=== PATIENT | male | born 1945 | race Caucasian/White ===

== ENCOUNTER → 2020-09-15 01:52 | Outpatient (CLI) | payer MEDICARE, SELFPAY ==
[2020-09-15 19:04] LABS: SARS-CoV-2 RNA PCR Negative
== END ==
PROVIDERS: PCP Internal Medicine; Visit Provider Urology
DX: Z01.812 Encounter for preprocedural laboratory examination (principal); Z20.822 Contact with and (suspected) exposure to COVID-19
CPT/HCPCS: C9803; U0003; U0005

== ENCOUNTER 2020-09-15 08:12 | Outpatient (CLI) | payer MEDICARE, SELFPAY ==
--- NOTE | 2020-09-15 09:00 | ECG_ITS ---
Measurements Intervals [place] Rate: 82 P: 52 MA: 192 QRS: -19 QRSD: 122 T: 19 QT: 364 QTc: 425 Interpretive Statements SINUS RHYTHM POOR R WAVE PROGRESSION, ANTERIOR LEADS INFERIOR INFARCT, AGE INDETERMINATE ABNORMAL ECG Electronically Signed On 09-15-2020 12:14:35 CDT by Jeff Self D.O.
== END 2020-09-15 08:13 | disposition home or self-care (01) ==
LOC: ANHSURGERY 08:16
PROVIDERS: PCP Internal Medicine; Visit Provider Urology
DX: Z01.810 Encounter for preprocedural cardiovascular examination (principal); I51.9 Heart disease, unspecified; I25.2 Old myocardial infarction
CPT/HCPCS: 93005; C9803; U0003; U0005

== ENCOUNTER 2020-09-18 03:14 | Day surgery (SDC) | payer MEDICARE, SELFPAY ==
[2020-09-08 15:46] VITALS: BMI 35.8
--- NOTE | 2020-09-11 07:19 | P.HP_ITS ---
History of Present Illness History of Present Illness Consent: Risks, benefits, and alternatives have been discussed and questions answered. Patient agrees to proceed with procedure. Chief complaint: bilateral hydroceles Narrative: Sha Crowe is a 74 year old male longstanding history scrotal swelling consistent with hydrocele. He also has a moderately elevated PSA. I have had several discussions with him about indications for hydrocelectomy and for prostate biopsy. After consideration he has opted for a bilateral hydrocelectomy but refuses a prostate biopsy. He is aware the risk of this procedure including, but not limited to, recurrent hydrocele formation, persistent scrotal swelling, scrotal hematoma. Review of Systems Cardiovascular: Cardiovascular: Denies chest pain, Denies lightheadedness, Denies palpitations and Denies dyspnea Respiratory: Respiratory: Denies dyspnea Gastrointestinal: Gastrointestinal: Denies diarrhea, Denies nausea and Denies vomiting Genitourinary: Genitourinary: Denies hematuria and Denies dysuria Endocrine: Endocrine: Denies palpitations PMFSH Social History Social History Smoking status: Never smoker Alcohol intake: former Drinks per week: 40 Spiritual care concerns: No Meds Home Medications and Allergies Home Medications Medication Instructions Recorded Confirmed Type No Home Medications 09/08/20 09/08/20 History Allergies Allergy/AdvReac Type Severity Reaction Status Date / Time No Known Allergies Allergy Verified 09/08/20 15:05 Exam Const: General: no acute distress Resp: Effort & Inspection: normal respiratory effort GI: Inspection: non-distended GI Palp: No abdominal tenderness and No Guarding due to palpation present (GI) Auscultation: normal bowel sounds Assessment and Plan Assessment and plan (1) Bilateral hydrocele: Code(s): N43.3 - Hydrocele, unspecified Status: Acute Assessment and Plan: * Bilateral hydrocelectomy (2) Elevated PSA: Code(s): R97.20 - Elevated prostate specific antigen [PSA] Status: Acute Assessment and Plan: * Patient opts against prostate ultrasound and biopsy
--- NOTE | 2020-09-17 13:55 | WPDANESEPPF ---
Anes - Initial Pre Proc Eval Procedure: Operation Date: 09/18/20 12:45 Proposed Procedures p Bilateral Hydrocelectomy - Pola Daigle MD Date/Time: 09/17/20 13:55 Surgeon: Pola Daigle MD Pre Op Diagnosis: bilateral hydroceles Patient Data Age: 74 Gender: M Height: 1.83 m Weight: 119.75 kg Allergies Allergy/AdvReac Type Severity Reaction Status Date / Time No Known Allergies Allergy Verified 09/08/20 15:05 Home Medications Medication Instructions Recorded Confirmed Type No Home Medications 09/08/20 09/08/20 History ECG: Date of Service: 09/15/20 Procedure(s): CA 12 lead EKG Accession Number(s): [id number] cc: ~ Measurements Intervals [place] Rate: 82 P: 52 MI: 192 QRS: -19 QRSD: 122 T: 19 QT: 364 QTc: 425 Interpretive Statements SINUS RHYTHM POOR R WAVE PROGRESSION, ANTERIOR LEADS INFERIOR INFARCT, AGE INDETERMINATE ABNORMAL ECG Electronically Signed On 09-15-2020 12:14:35 CDT by Jeff Self D.O. Dictated By: Jeff Self DO 09/15/20 1214 Patient hx anesthesia problems: none Family hx anesthesia problems: none [facility] Past Medical History Medical History (Updated 09/17/20 @ 13:57 by Nate Patel MD) Arthritis Bilateral hydrocele CAD (coronary artery disease) 2013 cabg Elevated PSA Obesity LIZET (obstructive sleep apnea) Surgical History Surgical History (Updated 09/17/20 @ 13:57 by Nate Patel MD) S/P CABG (coronary artery bypass graft) Social History Social History Smoking status: Never smoker Alcohol intake: former Drinks per week: 40 Alcohol use details: last drink may.30 Living arrangements: with family Spiritual care concerns: No Anes - Eval Final PreProcedure Day of Procedure 09/17/20 13:55 Patient weight: obese Heart: regular rate and rhythm Lungs: clear to auscultation and normal air movement Airway: Mallampati scale class II Neurological: alert and oriented Last oral intake: >/= 8 hours ASA classification: III Emergent: no Anesthetic plan: proceed Anesthesia type and monitoring: general LMA and ETT Informed Consent: The patient's anesthetic plan and its attendant risks and benefits were discussed with the patient/family/POA. Questions were solicited and answers provided to the satisfaction of the patient/family/POA.
[2020-09-18] VITALS (8 sets, daily range): BP systolic 140–158; BP diastolic 74–107; PULSE 82–97; RESP 16–24; TEMP 36.9; O2SAT 95–100
[2020-09-18] MEDS: LACTATED RINGERS 1,000 ML 30 ML IV CONT ×2 (11:26→15:06)
--- NOTE | 2020-09-18 11:56 | SUR.PREOP ---
Discussed delay of 30 minutes to 1 hour with patient and . Voiced understanding. Encouraged patient to let us know if and when he needed to rearrange or get off of the stretcher. Also encouraged to go get something to eat which she is doing.
--- NOTE | 2020-09-18 14:09 | WPDHPUPDATE1 ---
History and Physical Update Update Date/Time: 09/18/20 14:09 History and Physical has been reviewed, including an updated exam of the patient. There are NO changes in the patient's condition. Risks, benefits, and alternatives have been discussed and questions answered. Patient agrees to proceed with procedure.
[2020-09-18] MEDS: ceFAZolin 2 GM/D5W 50 ML 2 GM/50 ML BAG IVPB (14:17)
[2020-09-18] MEDS: LIDO 1%/EPINEPHRINE 1:100,000 50 ML VIAL 10 ML INFILTRATE (14:53)
--- NOTE | 2020-09-18 14:54 | SUR.OPER ---
SCROTAL FLUID LEFT 300ML, RIGHT 40ML
--- NOTE | 2020-09-19 13:16 | P.OP_ITS ---
Procedure Note - Detailed Date of procedure: 09/19/20 Pre-op diagnosis: bilateral hydroceles Post-op diagnosis: same Procedure performed: Bilateral hydrocelectomy. Description of procedure: The patient was brought to the operative suite where he was prepped and draped in routine sterile fashion while in a supine position after the uneventful induction of a general LMA anesthetic. An incision was made in the median raphe of the scrotum and dissection was carried first into the left tunica vaginalis. Clear, straw-colored fluid was drained. The testicle was examined and found to be both visibly and palpably normal. The tunica was everted in a bottle-neck fashion using a running 4-0 chromic. The testicle was restore returned to an orthotopic positioned. Through the same midline scrotal incision the right tunica vaginalis was opened and a small hydrocele was drained. The tunica was treated in a similar fashion for eversion. The dartos muscle was closed with a running 4-0 chromic and the skin was likewise closed with a running 4-0 chromic. Estimated blood loss throughout this procedure was 5cc . Patient tolerated the procedure well and was taken to the recovery room in good condition. Anesthesia: GLMA Surgeon: Pola Daigle MD Supervisor Coin Machine: DANICA Oliveira Estimated blood loss (mL): 5 Drains: No Packing: No Pathology: none sent Complications: No immediate complications Condition: stable Disposition: PACU
== END 2020-09-18 17:11 | disposition home or self-care (01) ==
PROVIDERS: PCP Internal Medicine; Visit Provider Urology
PROC: (CPT 55040; principal; 2020-09-18 12:45)
DX: N43.3 Hydrocele, unspecified (principal); R97.20 Elevated prostate specific antigen [PSA]; I25.2 Old myocardial infarction; F41.9 Anxiety disorder, unspecified; I25.10 Atherosclerotic heart disease of native coronary artery without angina pectoris; Z95.1 Presence of aortocoronary bypass graft; G47.33 Obstructive sleep apnea (adult) (pediatric); E66.9 Obesity, unspecified; Z68.35 Body mass index [BMI] 35.0-35.9, adult
CPT/HCPCS: 55060; J0690; J1940; J2250; J2405; J2704; J3010; J7120

== ENCOUNTER 2021-10-20 08:53 | Outpatient (CLI) | payer MEDICARE, SELFPAY ==
--- NOTE | ~2021-10-20 | NM_ITS ---
EXAMINATION: NM zaheer stress w perfusion DATE: 10/20/2021 11:54 INDICATION: Dyspnea TECHNIQUE: Rest images were obtained following intravenous administration of 9.7 mCi Tc99m tetrofosmi n (Myoview). The patient was infused intravenously with Lexiscan (Regadenoson). Then, 31.1 mCi Tc99m tetrofosmin (Myoview) was administered intravenously, and stress images were obtained in supine posit ion. Additional post stress imaging was obtained in the prone position.. Data was reconstructed into short axis and horizontal and vertical long axis SPECT images. Gated SPECT images were also obtained. COMPARISON: None. FINDINGS: Regions of artifactual decreased activity at the anterior and lateral benoit more prominent on the stress than on the rest images which reverses with prone imaging. No definitive perfusion defe cts identified. There is normal left ventricular chamber size, wall motion with borderline left vent ricular ejection fraction which measures 49%. IMPRESSION: 1. Normal myocardial perfusion at rest and during stress. 2. Left ventricular ejection fraction measuring 49%. Reviewed, dictated and finalized at location B.
--- NOTE | 2021-10-20 09:08 | ECHO_ITS ---
Patient Info Name: Sha Crowe Age: 76 years : 1945 Gender: Male Ht: 72 in Wt: 265 lbs BSA: 2.51 m2 BP: 155 / 105 mmHg Technical Quality: Fair Exam Date: 10/20/2021 9:25 AM Exam Location: [facility] Patient Status: Outpatient Admit Date: 10/20/2021 Staff Ordering Physician: Jeff Self DO Sql Manager: Donald Aaron, JENNIE, RT Attending Provider: Jeff Self DO Referring Physician: Aramis GONZALEZ; Exam Type: CA echo dop color flow w con Study Info Indications R06.00 - Dyspnea, unspecified Complete two-dimensional, color flow and Doppler transthoracic echocardiogram is performed with contrast to opacify the left ventricle and to improve the deliniation of the left ventricle endocardial borders. Summary 1. Left ventricular chamber dimension is moderately enlarged. 2. Definity contrast administered improved wall motion interpretation. 3. Basal to mid posterior/inferior benoit are severely hypokinetic to akinetic. 4. Left ventricular systolic function is mildly reduced, estimated at 45-50%. 5. There is mildly increased left ventricular wall thickness. 6. Left ventricular septal wall motion is abnormal with septal motion related to bundle branch block. 7. The left ventricular diastolic function is grade I diastolic dysfunction. 8. E/e' 9 is minimally elevated. 9. Right ventricular chamber dimension is mildly enlarged. 10. Right ventricular systolic function is moderately reduced and with abnormal TAPSE 1.5 cm. 11. Left atrial chamber dimension is mildly enlarged. 12. There is trace mitral valve regurgitation. 13. The aortic root size at the sinus of Valsalva is borderline dilated at 4.0 cm. 14. Dilated inferior vena cava with >50% collapse upon inspiration consistent with elevated right atrial pressure, 10 mmHg. Left Ventricle E/e' 9 is minimally elevated. Basal to mid posterior/inferior benoit are severely hypokinetic to akinetic. Definity contrast administered improved wall motion interpretation. Left ventricular chamber dimension is moderately enlarged. Left ventricular systolic function is mildly reduced, estimated at 45-50%. There is mildly increased left ventricular wall thickness. Left ventricular septal wall motion is abnormal with septal motion related to bundle branch block. The left ventricular diastolic function is grade I diastolic dysfunction. Right Ventricle Right ventricular systolic function is moderately reduced and with abnormal TAPSE 1.5 cm. Right ventricular chamber dimension is mildly enlarged. Left Atria Left atrial chamber dimension is mildly enlarged. Right Atria Right atrial chamber dimension is normal. Aortic Valve The aortic valve is trileaflet. There is no aortic valve stenosis. There is no aortic valve regurgitation. Pulmonic Valve There is no pulmonic regurgitation. Mitral Valve There is no mitral valve stenosis. There is trace mitral valve regurgitation. Tricuspid Valve There is no tricuspid valve regurgitation. Pericardium/Pleural There is no pericardial effusion. Inferior Vena Cava Dilated inferior vena cava with >50% collapse upon inspiration consistent with elevated right atrial pressure, 10 mmHg. Aorta The aortic root size at the sinus of Valsalva is borderline dilated at 4.0 cm. Left Ventricular Outflow Tract Name Value Normal
--- NOTE | 2021-10-20 09:33 | EST_ITS ---
Patient Info Name: Sha Crowe Age: 76 years : 1945 Gender: Male Ht: 72 in Wt: 265 lbs BSA: 2.51 m2 Exam Date: 10/20/2021 10:41 AM Exam Location: [facility] Stress Patient Status: Outpatient Admit Date: 10/20/2021 Staff Ordering Physician: Jfef Self DO Attending Provider: Jeff Self DO Exercise Technologist: Gabbi Gonzalez RDCS Exercise Physician: Jeff Self DO Exam Type: CA stress zaheer w NM Study Info Indications R06.00 - Dyspnea, unspecified A regadenoson stress test was performed. Summary 1. 1. Negative lexiscan stress test for ischemic ST changes by ECG criteria. 2. 2. Baseline hypertension. 3. 3. Nuclear scan to follow and will be reported separately. Please correlate with it. 4. 4. Patient informed of the above results. Protocol: Lexiscan Stress ECG Details Stage: REST Duration (min): 7 min : 50 sec HR (bpm): 71 SBP (mmHg): 163 DBP (mmHg): 96 Stage: REST Duration (min): 22 min : 4 sec HR (bpm): 67 SBP (mmHg): 163 DBP (mmHg): 96 Stage: STAGE 1 Duration (min): 1 min : 0 sec HR (bpm): 83 SBP (mmHg): 153 DBP (mmHg): 96 Stage: RECOVERY Duration (min): 1 min : 0 sec HR (bpm): 97 SBP (mmHg): 158 DBP (mmHg): 91 Stage: RECOVERY Duration (min): 2 min : 0 sec HR (bpm): 89 SBP (mmHg): 158 DBP (mmHg): 91 Stage: RECOVERY Duration (min): 3 min : 0 sec HR (bpm): 90 SBP (mmHg): 176 DBP (mmHg): 96 Stage: RECOVERY Duration (min): 4 min : 0 sec HR (bpm): 86 SBP (mmHg): 176 DBP (mmHg): 96 Stage: RECOVERY Duration (min): 5 min : 0 sec HR (bpm): 82 SBP (mmHg): 169 DBP (mmHg): 94 Stage: RECOVERY Duration (min): 6 min : 0 sec HR (bpm): 79 SBP (mmHg): 169 DBP (mmHg): 94 Stage: RECOVERY Duration (min): 6 min : 51 sec HR (bpm): 78 SBP (mmHg): 162 DBP (mmHg): 89 Rest HR: 67 bpm Peak HR: 99 bpm Rest Sys BP: 163 mmHg Peak Sys BP: 176 mmHg Max Pred HR: 145 bpm % Max Pred HR: 68 % Target HR: 123 bpm Max RPP: 17,424 bpm*mmHg Termination Reason: Completed protocol Cardiac Symptoms: Shortness of breath Total Time: 1 min : 0 sec Rest Sanchez BP: 96 mmHg Peak Sanchez BP: 96 mmHg Total Dose: 0.4 mg Resting ECG Sinus or ectopic atrial rhythm, PVC's, delayed precordial R/S transition, low voltage in precordial leads. Stress ECG No ST changes. Arrhythmias None. Report Signatures
[2021-10-20] MEDS: PERFLUTREN LIPID MICROSPHERES 1.5 ML VIAL DILUTED TO 10 ML TOTAL VOLUME IV PUSH (10:00)
== END 2021-10-20 08:54 | disposition home or self-care (01) ==
LOC: ANHCARD 08:54
PROVIDERS: PCP Internal Medicine; Visit Provider Internal Medicine Cardiovascular Disease
DX: R06.00 Dyspnea, unspecified (principal); I51.7 Cardiomegaly; R93.1 Abnormal findings on diagnostic imaging of heart and coronary circulation
CPT/HCPCS: 78452; 93017; A9502; C8929; J2785; Q9957

== ENCOUNTER 2021-10-29 10:33 | Outpatient (CLI) | payer MEDICARE, SELFPAY ==
--- NOTE | ~2021-10-29 | US_ITS ---
EXAMINATION: US aorta DATE: 10/29/2021 12:29 INDICATION: Abdominal aortic aneurysm screening, obesity, prior smoker, hypercholesterolemia TECHNIQUE: Grayscale, color Doppler, and pulsed Doppler images of the aorta and common iliac arteries were obtained. COMPARISON: None. FINDINGS: Maximum vascular dimensions are as follows: Proximal aorta: 2.0 cm Mid aorta: 1.7 cm Distal aorta: 2.0 cm Right common iliac artery: 1.2 cm Left common iliac artery: 1.3 cm There is no evidence of abdominal aortic aneurysm. IMPRESSION: 1. No sonographic evidence of abdominal aortic aneurysm. Reviewed, dictated and finalized at location F.
== END 2021-10-29 10:34 | disposition home or self-care (01) ==
LOC: ANHIMG 10:38
PROVIDERS: PCP Internal Medicine; Visit Provider Physician Assistant Medical
DX: Z13.6 Encounter for screening for cardiovascular disorders (principal); Z82.49 Family history of ischemic heart disease and other diseases of the circulatory system
CPT/HCPCS: 76775

== ENCOUNTER 2021-11-12 01:53 | Day surgery (SDC) | payer MEDICARE, SELFPAY ==
--- NOTE | 2021-10-30 10:55 | P.HP_ITS ---
History of Present Illness History of Present Illness Consent: Risks, benefits, and alternatives have been discussed and questions answered. Patient agrees to proceed with procedure. Chief complaint: left hydrocele Narrative: Sha Crowe is a 76 year old male Who is status post bilateral hydrocelectomy just over 1 year ago. He did well for several months but has developed to reaccumulation of fluid around his left testicle. This has been confirmed by both exam and ultrasonography. After discussion of therapeutic options he has elected for repeat left hydrocelectomy. He is aware of risk including, but not limited to, adverse cardiopulmonary events, re-accumulation of scrotal fluid, scrotal hematoma. Review of Systems Cardiovascular: Cardiovascular: Denies chest pain, Denies lightheadedness, Denies palpitations and Denies dyspnea Respiratory: Respiratory: Denies dyspnea Gastrointestinal: Gastrointestinal: Denies diarrhea, Denies nausea and Denies vomiting Genitourinary: Genitourinary: Denies hematuria and Denies dysuria Endocrine: Endocrine: Denies palpitations [facility] Past Medical History Medical History Arthritis Bilateral hydrocele CAD (coronary artery disease) 2013 cabg Elevated PSA Obesity LIZET (obstructive sleep apnea) Surgical History Surgical History S/P CABG (coronary artery bypass graft) Social History Social History Smoking status: Never smoker Alcohol intake: former Drinks per week: 40 Alcohol use details: last drink may.30 Spiritual care concerns: No Meds Home Medications and Allergies Home Medications Medication Instructions Recorded Confirmed Type hydrocodone 5 mg-acetaminophen 325 1 - 2 tablet PO Q6H PRN pain #20 09/18/20 09/22/21 Rx mg tablet tabs aspirin 81 mg tablet,delayed 81 mg PO DAILY 09/22/21 09/22/21 History release (Adult Aspirin Regimen) rosuvastatin 20 mg tablet 20 mg PO DAILY #90 tabs 09/28/21 Rx Allergies Allergy/AdvReac Type Severity Reaction Status Date / Time No Known Allergies Allergy Verified 09/22/21 13:17 Exam Const: General: no acute distress Resp: Effort & Inspection: normal respiratory effort GI: Inspection: non-distended GI Palp: No abdominal tenderness and No Guarding due to palpation present (GI) Auscultation: normal bowel sounds : Scrotum: Hydrocele present (moderate, left) Assessment and Plan Assessment and plan (1) Left hydrocele: Code(s): N43.3 - Hydrocele, unspecified Status: Acute Assessment and Plan: * Left hydrocelectomy
[2021-10-30 15:30] VITALS: BMI 23.3
--- NOTE | 2021-10-30 15:48 | PC.NURSE ---
Report to the Outpatient Waiting Room, entrance under the green pavilion located off [facility], at time __10:00AM on date _11/12/21 . OR Time: __12:00PM . - You and your visitor will be asked a series of questions to screen for COVID 19 for your protection. - Only one visitor is allowed at this time. - The patient visitor is requested to leave or wait in car when not with patient. - A mask is required within the hospital. Patients may have clear liquids (water, carbonated beverages, clear teas, apple juice) until 3 hours prior to surgery with a maximum of 20 ounces. - No food from midnight until time of surgery - Infants may have breast milk until 4 hours before surgery, formula 6 hours prior to surgery. - Children will be allowed to drink immediately following surgery. If applicable, please bring a bottle or sippy cup to assist with drinking. Juice, water, soda, and popsicles are readily available. For infants on formula, please bring formula the day of surgery. Pacifiers are allowed. Take the following medications with a SIP of water the morning of surgery: ___NONE Medications to discontinue per physician ____HOLD ALL VITAMINS/SUPPLEMENTS 3 DAYS PRE-OP Date to take last dose 11/08/21 Please no make-up, nail maori, hairspray, perfume, deodorant, or body powder the day of surgery. No jewelry (including any body piercings) or valuables the day of surgery, leave them at home. Please take a shower or bath the night before, or the morning of, surgery with an antibacterial soap. Wear comfortable, loose fitting clothing. Children are encouraged to wear pajamas. - Jewelry must be removed prior to entering the operating room. Rings and piercings that are not removed may be cut off. - The hospital will not accept responsibility for valuables. - Please leave all valuables, including medications, at home the day of surgery. If you are going home after surgery, a licensed pick up and delivery driver must drive you home. - NO public transportation without another adult. - We recommend that an adult stay with you for 24 hours following discharge. - We also recommend that you do not drive, make important decision, drink alcoholic beverages, or take any drugs that were not prescribed by your health care provider for at least 24 hours after your discharge time. For Pediatric surgeries, we recommend two adults accompany the child home (only one inside the building at this time). Follow any additional instructions given to you from your surgeon. If you or anyone in your household have experienced Covid symptoms in the past week, please notify your surgeon or the nurse liaison at the phone number below for possible testing. Telephone instructions given to __PATIENT and asked if any additional questions and then verbalized understanding. Patient advised to call surgeon office or pre surgery nurse liaison [phone] if any additional questions.
[2021-11-12] VITALS (7 sets, daily range): BP systolic 161–176; BP diastolic 87–101; PULSE 68–79; RESP 16–20; TEMP 36.2–36.6; O2SAT 97–100
--- NOTE | 2021-11-12 06:24 | WPDHPUPDATE1 ---
History and Physical Update Update Date/Time: 11/12/21 06:24 History and Physical has been reviewed, including an updated exam of the patient. There are NO changes in the patient's condition. Risks, benefits, and alternatives have been discussed and questions answered. Patient agrees to proceed with procedure.
[2021-11-12] MEDS: LACTATED RINGERS 1,000 ML 30 ML IV CONT (10:15)
--- NOTE | 2021-11-12 10:46 | WPDANESEPPF ---
Anes - Initial Pre Proc Eval Procedure: Operation Date: 11/12/21 11:30 Proposed Procedures p Left Hydrocelectomy - Pola Daigle MD Date/Time: 11/12/21 10:46 Surgeon: Pola Daigle MD Pre Op Diagnosis: left hydrocele Patient Data Age: 76 Gender: M Height: 1.83 m Weight: 123.1 kg Last Vital Signs Temp 36.6 C 11/12/21 10:20 Pulse 72 11/12/21 10:20 Resp 16 11/12/21 10:20 BP 176/87 H 11/12/21 10:20 Pulse Ox 99 11/12/21 10:20 O2 Del Method Room Air 11/12/21 10:20 Allergies Allergy/AdvReac Type Severity Reaction Status Date / Time No Known Allergies Allergy Verified 11/12/21 10:20 Home Medications Medication Instructions Recorded Confirmed Type Farhan Pepper 1 tab-cap PO DAILY 10/30/21 11/12/21 History apple cider vinegar 500 mg tablet 500 mg PO DAILY 10/30/21 11/12/21 History Patient hx anesthesia problems: none Family hx anesthesia problems: none Results Review: All pre-operative results and documents have been reviewed as part of the pre-operative evaluation. [facility] Past Medical History Medical History (Updated 10/30/21 @ 10:57 by Pola Daigle MD) Arthritis Bilateral hydrocele CAD (coronary artery disease) 2014 cabg Elevated PSA Obesity LIZET (obstructive sleep apnea) Surgical History Surgical History (Updated 11/12/21 @ 10:53 by Son Hernandez DO) 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, 2011 Social History Social History (Updated 11/12/21 @ 10:52 by Son Hernandez DO) Smoking packs per day: 1 Smoking cigarettes per day: 20.0 Years smoked: 1 Smoking pack-years: 1.00 Smoking status: Former smoker Tobacco type: cigarettes Smoking end date: 11/27/94 Alcohol intake: current Drinks per week: 70 Alcohol use details: 6-10 beers/day Substance use: never Living arrangements: with family Additional living arrangements comments: Spiritual care concerns: No Anes - Eval Final PreProcedure Day of Procedure 11/12/21 10:46 Patient weight: obese Heart: regular rate and rhythm Lungs: clear to auscultation Airway: Mallampati scale class II Neurological: alert and oriented Last oral intake: >/= 8 hours ASA classification: III Emergent: no Anesthetic plan: proceed Anesthesia type and monitoring: general LMA and standard monitoring Results Review: All pre-operative results and documents have been reviewed as part of the pre-operative evaluation. Informed Consent: The patient's anesthetic plan and its attendant risks and benefits were discussed with the patient/family/POA. Questions were solicited and answers provided to the satisfaction of the patient/family/POA.
[2021-11-12] MEDS: ceFAZolin 3 GM/D5W 100 ML 100 ML IVPB (11:41)
[2021-11-12] MEDS: LIDO 1%/EPINEPHRINE/PF 1:200,000 30 ML VIAL XX (12:08)
--- NOTE | 2021-11-12 12:25 | W.PM.PROC2 ---
Procedure Note - Detailed Date of Procedure 11/12/21 Pre-op Diagnosis Recurrent left hydrocele Post-op Diagnosis Same Procedure Performed Left hydrocelectomy Surgeon Pola Daigle MD Description of Procedure The patient was brought to the operative suite where he was prepped and draped in routine sterile fashion while in a supine position after the uneventful induction of a general LMA anesthetic. An incision was made in the median raphe of the scrotum and dissection was carried into the left tunica vaginalis. Clear, straw-colored fluid was drained. The testicle was examined and found to be both visibly and palpably normal. The tunica was everted in a bottle-neck fashion using a running 4-0 chromic. The testicle was restore returned to an orthotopic positioned. The dartos muscle was closed with a running 4-0 chromic and the skin was likewise closed with a running 4-0 chromic. Estimated blood loss throughout this procedure was <5cc . Patient tolerated the procedure well and was taken to the recovery room in good condition. Drains No Packing No Pathology None sent Complications No immediate complications
== END 2021-11-12 13:52 | disposition home or self-care (01) ==
PROVIDERS: PCP Internal Medicine; Visit Provider Urology
PROC: (CPT 55040; principal; 2021-11-12 11:30)
DX: N43.3 Hydrocele, unspecified (principal); I25.10 Atherosclerotic heart disease of native coronary artery without angina pectoris; G47.33 Obstructive sleep apnea (adult) (pediatric); Z95.1 Presence of aortocoronary bypass graft; E66.9 Obesity, unspecified; Z68.36 Body mass index [BMI] 36.0-36.9, adult; Z87.891 Personal history of nicotine dependence
CPT/HCPCS: 55060; J0690; J2704; J3010; J7120

== ENCOUNTER 2022-07-21 13:24 | Inpatient (IN) | payer MEDICARE, SELFPAY ==
[2022-07-21] VITALS (35 sets, daily range): BP systolic 105–159; BP diastolic 69–111; PULSE 89–142; RESP 13–37; TEMP 35.8–36.7; O2SAT 90–98; BMI 34.2; BMI 34.8
--- NOTE | 2022-07-21 | ECHO_ITS ---
Patient Info Name: Sha Crowe Age: 76 years : 1945 Gender: Male Ht: 72 in Wt: 244 lbs BSA: 2.40 m2 HR: 106 bpm BP: 117 / 93 mmHg Heart Rhythm: Atrial Fibrillation Technical Quality: Fair Exam Date: 07/21/2022 3:33 PM Exam Location: [facility] Card Pulmonary Patient Status: Inpatient Admit Date: 07/21/2022 Staff Ordering Physician: Jeff Self DO [employer] Plant Operator: Shellie Andres RDCS Attending Provider: Kelvin Ribeiro MD Referring Physician: Aramis GONZALEZ; Exam Type: CA echo doppler color flow Study Info Indications - atrial fib, elevated troponin Complete two-dimensional, color flow and Doppler transthoracic echocardiogram is performed. Summary 1. Complete two-dimensional, color flow and Doppler transthoracic echocardiogram is performed. 2. Left ventricular chamber dimension is moderately enlarged. 3. Left ventricular systolic function is severely reduced, estimated at 20-25%. 4. The left ventricular diastolic function is abnormal. 5. E/e' 12 is mildly elevated. 6. Atrial fibrillation. 7. Right ventricular chamber dimension is mildly enlarged. 8. Right ventricular systolic function is severely reduced and with abnormal TAPSE 1.0 cm. 9. Left atrial chamber dimension is moderately enlarged. 10. Right atrial chamber dimension is mildly enlarged. 11. No pulmonary hypertension, estimated pulmonary arterial systolic pressure is 15 mmHg. Left Ventricle E/e' 12 is mildly elevated. Atrial fibrillation. Left ventricular chamber dimension is moderately enlarged. Left ventricular systolic function is severely reduced, estimated at 20-25%. The left ventricular diastolic function is abnormal. Right Ventricle Right ventricular chamber dimension is mildly enlarged. Right ventricular systolic function is severely reduced and with abnormal TAPSE 1.0 cm. Left Atria Left atrial chamber dimension is moderately enlarged. Right Atria Right atrial chamber dimension is mildly enlarged. Aortic Valve The aortic valve is trileaflet. There is no aortic valve stenosis. There is no aortic valve regurgitation. Pulmonic Valve There is no pulmonic regurgitation. Mitral Valve There is no mitral valve stenosis. There is no mitral valve regurgitation. Tricuspid Valve There is no tricuspid valve regurgitation. No pulmonary hypertension, estimated pulmonary arterial systolic pressure is 15 mmHg. Pericardium/Pleural There is no pericardial effusion. Inferior Vena Cava Normal inferior vena cava with >50% collapse upon inspiration consistent with normal right atrial pressure, 5 mmHg. Aorta The aortic root size at the sinus of Valsalva is normal. Left Ventricular Outflow Tract Name Value Normal LVOT 2D LVOT Diameter 2.0 cm LVOT Doppler LVOT Peak Gradient 1 mmHg LVOT Mean Gradient 0 mmHg LVOT VTI 9 cm LVOT VTI/AV VTI Ratio 0.8 LVOT Stroke Volume 28 ml LVOT CO 2.2 l/min LVOT CI
--- NOTE | ~2022-07-21 | XR_ITS ---
EXAMINATION: XR chest 2V DATE: 07/21/2022 14:25 INDICATION: Chest pain and shortness of breath TECHNIQUE: frontal and lateral views of the chest were obtained. COMPARISON: None FINDINGS: Patchy airspace opacities in the right mid to lower lung zone and minimal opacities in the left lower lung zone. No pleural effusion or pneumothorax. Cardiomegaly. Median sternotomy wires and mediastinal surgical clips are seen, likely from prior coronary artery by pass grafting. Mild to moderate thoracic spondylosis. IMPRESSION: 1. Opacities in the right mid to lower and to lesser degree left lower lung zones which could represe nt pneumonia, pulmonary edema, atelectasis or some combination thereof. 2. Mild cardiomegaly. Reviewed, dictated and finalized at location A. THESIOLOGY PHYSICIAN IMPRESSION: 1. Opacities in the right mid to lower and to lesser degree left lower lung zon es which could represent pneumonia, pulmonary edema, atelectasis or some combin ation thereof. 2. Mild cardiomegaly.
--- NOTE | 2022-07-21 13:27 | ECG_ITS ---
Measurements Intervals [place] Rate: 129 P: MA: 0 QRS: -47 QRSD: 119 T: 73 QT: 317 QTc: 465 Interpretive Statements ATRIAL FIBRILLATION WITH RAPID VENTRICULAR RESPONSE MARKED LEFT AXIS DEVIATION [QRS AXIS < -30] POSSIBLE ANTERIOR MYOCARDIAL INFARCTION , PROBABLY OLD [30 ms Q WAVE IN V3/V4, OR R < 0.2 mV IN V4] COMPARED TO ECG 09/15/2020 08:26:15 ATRIAL FIBRILLATION NOW PRESENT Electronically Signed On 07-21-2022 15:07:02 PARTY PLAN DEMONSTRATOR by Kristine Chambers M.D.
[2022-07-21] MEDS: dilTIAZem HCl INJ 25 MG/5 ML VIAL 15 MG IV PUSH (13:52)
[2022-07-21 14:02] LABS: Basophils Percent Auto 0.4 % (0.2-1.2); Eosinophils Absolute Auto 0.1 K/mm3 (0-0.3); Eosinophils Percent Auto 0.6 % (0-4.4); Hematocrit 50.9 % (42.0-52.0); Hemoglobin 16.3 g/dL (14.0-18.0); Immature Granulocyte Absolute 0.07 K/mm3 (0.00-0.031); Immature Granulocyte Percent A 0.8 % (0-0.5); Lymphocytes Absolute Auto 1.58 K/mm3 (0.9-3.2); Lymphocytes Percent Auto 17.4 % (18.3-44.2); Mean Corpuscular Volume 93.6 fl (80-100); Mean Platelet Volume 12.8 fl (7.4-10.4); Monocytes Absolute Auto 0.9 K/mm3 (0.1-0.6); Monocytes Percent Auto 9.4 % (2.6-8.5); Neutrophils Absolute Auto 6.5 K/mm3 (1.3-6.7); Neutrophils Percent Auto 71.4 % (45.5-73.1); Platelet Count Result 177 k/mm3 (150-375); Red Blood Count 5.44 M/mm3 (4.6-6.20); Red Cell Distribution Width 15.9 % (11.5-14.5); White Blood Count 9.1 K/mm3 (4.5-10.0)
[2022-07-21 14:17] LABS: INR 1.1; Prothrombin Time 13.6 Seconds (11.1-14.7)
[2022-07-21 14:18] LABS: Partial Thromboplastin Time 23.2 SECONDS (22.3-36.8)
[2022-07-21 14:23] LABS: Alanine Aminotransferase 83 U/L (6-50); Albumin Level 4.5 g/dL (3.5-5.1); Alkaline Phosphatase 56 U/L (38-126); Anion Gap 10 mmol/L (8-16); Aspartate Amino Transferase 45 U/L (17-59); Bilirubin,Total 0.7 mg/dL (0.2-1.3); Blood Urea Nitrogen 26 mg/dL (9-20); Calcium 9.3 mg/dL (8.4-10.2); Carbon Dioxide 23 mmol/L (22-30); Chloride 103 mmol/L (98-107); Estimated CRCL calculation 61 ml/min; Estimated Glomerular Filt Rate 59; Glucose 209 mg/dL (65-110); Lipase 125 U/L (23-300); Potassium 4.4 mmol/L (3.4-5.0); Sodium 136 mmol/L (137-145)
[2022-07-21 14:34] LABS: Troponin I 0.075 ng/mL (0.000-0.034)
[2022-07-21] MEDS: FUROSEMIDE INJ 40 MG/4 ML VIAL IV PUSH (14:55)
--- NOTE | 2022-07-21 15:15 | ED.CHESTPAIN ---
HPI - Chest Pain General Chief Complaint: Chest Pain Stated Complaint: HTN chest pain Time Seen by Provider: 07/21/22 13:48 Source: patient and family Mode of arrival: ambulatory Limitations: no limitations History of Present Illness HPI narrative: 76-year-old with a history of hypertension, A-fib, gout here with complaints of shortness of breath for past several weeks. Patient states she was admitted to [facility] few days ago however he signed out AMA comes in with ongoing shortness of breath. He denied any chest pain. No history of fever or chills. Patient states that he has not been taking Xarelto as prescribed as he cannot afford that medication as it cost him $750 a month. He also mentioned that he did not talk to his doctor about it. He has occasional nonproductive cough. MD complaint: other (Shortness of breath) Pertinent past history: CABG Onset (ago): week(s) Timing of current episode: constant and still present Onset: during exertion Pain radiation: none Relieving factors: nothing Exacerbating factors: nothing Related Data Allergies Allergy/AdvReac Type Severity Reaction Status Date / Time No Known Allergies Allergy Verified 07/21/22 13:45 Review of Systems Review of Systems: All systems reviewed & are unremarkable except as noted in HPI and below Constitutional: Constitutional: Reports no additional constitutional complaints Eyes: Eyes: Reports no additional eye complaints ENT: Reports system reviewed and no additional complaints, except as documented Cardiovascular: Cardiovascular: Reports as per HPI Respiratory: Respiratory: Reports no additional respiratory complaints Gastrointestinal: Gastrointestinal: Reports no additional gastrointestinal complaints Musculoskeletal: Musculoskeletal: Reports no additional musculoskeletal complaints Integumentary/Breasts: Skin/Breast: Reports system reviewed and no additional complaints, except as docu Psychiatric: Psychiatric: Reports no additional psychiatric complaints [facility] Past Medical History Medical History Acute gout Arthritis Bilateral hydrocele Bilateral leg weakness CAD (coronary artery disease) 2014 cabg Elevated PSA Gout Lumbar pain Obesity LIZET (obstructive sleep apnea) Surgical History Surgical History 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, 2012 Family History Family History Father Cancer Social History Social History Smoking packs per day: 1 Smoking cigarettes per day: 20.0 Years smoked: 1 Smoking pack-years: 1.00 Smoking status: Former smoker Tobacco type: cigarettes Smoking end date: 11/27/94 Alcohol intake: current Drinks per week: 70 Alcohol use details: 6-10 beers/day Substance use: never Lack of Transportation: No Lack of Food: Never True Current Housing: I Have Housing Concerned About Future Housing: No Difficulty Paying Gas/Electric Bills: No Difficulty Paying for Meds: No Currently Unemployed: No Difficulty w/ Childcare or Family Care: No Living arrangements: with family Additional living arrangements comments: Occupation/Education: retired Gender identity (if verbalized by the patient): Male Sexual Orientation (if Verbalized by the Patient): Straight or Heterosexual Spiritual care concerns: No Exam Narrative: GENERAL: Well-appearing, well-nourished, and in no acute distress. HEAD: Normocephalic, atraumatic. EYES: PERRLA and EOMI. NECK: Supple. CHEST: Clear to auscultation. No respiratory distress. HEART: Tachycardic and irregularly irregular. Normal peripheral pulses. ABDOMEN: Soft, nontender, nondistended, normal active bowel sounds. EXTREMITIES: Normal range of motion. No edema. SKIN: Warm, dry, no rash. NE
[2022-07-21 15:27] LABS: NT Pro B Type Natriuretic Pept 3900 pg/mL (19.9-100)
[2022-07-21] MEDS: dilTIAZem 100 MG/100 ML 100 MG/100 ML BAG IV CONT (15:27)
--- NOTE | 2022-07-21 15:36 | ECG_ITS ---
Measurements Intervals [place] Rate: 110 P: [place]: 0 QRS: -29 QRSD: 127 T: 85 QT: 379 QTc: 513 Interpretive Statements ATRIAL FIBRILLATION WITH RAPID VENTRICULAR RESPONSE INFERIOR MYOCARDIAL INFARCTION , PROBABLY OLD [40+ ms Q WAVE AND/OR ST/T ABNORMALITY IN II/aVF] ABNORMAL ECG COMPARED TO ECG 07/21/2022 13:31:30 NO SIGNIFICANT CHANGES Electronically Signed On 07-22-2022 10:03:12 PETROLEUM REFINING FIRER by Yoshi Grijalva M.D.
--- NOTE | 2022-07-21 15:37 | PM.CNCAR ---
Assessment and Plan Assessment and plan (1) Atrial fibrillation with rapid ventricular response: Code(s): I48.91 - Unspecified atrial fibrillation Status: Acute Assessment and Plan: Symptomatic. Could be related to alcohol abuse, untreated LIZET (did not tolerate CPAP years ago), age. [id number] 3. He cannot afford Xarelto. Start Lovenox 1 mg/kg SQ q12 hours. He will need Warfarin ultimately, but will assess his heart first for ischemia and cardiomyopathy. Start Sotalol 80 mg every 12 hours. Check EKG 1-2 hours post each dose to check QT interval. Rate control with Diltiazem drip in the meantime. (2) Elevated troponin: Code(s): R77.8 - Other specified abnormalities of plasma proteins Status: Acute Assessment and Plan: First troponin mildly elevated at .075. Trend troponin. 10/20/21 Echo: EF 45-50%, mod LVE, basal to mid posterior/inferior wall severely hypokinetic to akinetic, mild LVH, grade I diastolic dysfunction (E/e' 9), mild RVE, mod RV hypokinesis, mild LAE, trace MR, Aorta 4.0 cm. Obtain echo. (3) CAD (coronary artery disease), autologous vein bypass graft: Code(s): I25.810 - Atherosclerosis of coronary artery bypass graft(s) without angina pectoris Status: Acute Assessment and Plan: 04/13/13 [facility] CABG x 6 vessels (LANDIS to LAD, left radial to OM, SVG to Ramus, SVG to 1st and 2nd Diag, SVG to PDA). (4) Dyslipidemia: Code(s): E78.5 - Hyperlipidemia, unspecified Status: Acute Assessment and Plan: Very high cholesterol levels. Discussed going on statins but he refuses and states his brother while on Lipitor from an aneurysm. Educated patient about side effects of statins which does not include aneurysms, but he refuses at this time. History of Present Illness History of Present Illness Consult date/time: 07/21/22 15:37 Reason For Visit: afib with rvr,elevated trop,chf Narrative: 76 yr old man who is my regular cardiology patient and a patient of Dr. Eng presents to ER with sob. He has a history of CAD, CABG x 7 vessels in Mar 2013 at [facility] in [place], PAF, LIZET (did not tolerate CPAP years ago). Presents with his . States he has been having family problems with his son and so he started drinking more Chirag Marie' with water. It was noted about a month ago he was in new onset atrial fib. He was started on Metoprolol for rate control and Xarelto for anticoagulation. States he took Xarelto for a month but cannot afford it anymore. He started having worsen sob and decided to come in. Previously, reports he has DILLARD walking about 1-2 blocks and less stamina in the past year. Denies chest pain, sob, orthopnea, PND, edema, dizziness, palpitations. Cardiovascular Procedures Traveling Freight Agent:: 04/13/13 [facility] CABG x 6 vessels (LANDIS to LAD, left radial to OM, SVG to Ramus, SVG to 1st and 2nd Diag, SVG to PDA). Echo/MUGA:: 10/20/21 Echo: EF 45-50%, mod LVE, basal to mid posterior/inferior wall severely hypokinetic to akinetic, mild LVH, grade I diastolic dysfunction (E/e' 9), mild RVE, mod RV hypokinesis, mild LAE, trace MR, Aorta 4.0 cm. Electrophysiology:: 06/01/22 EKG: Atrial fibrillation at 111 bpm, cannot r/o septal infarct, age indeterminate, consider inferior infarct, age indeterminate. 09/22/21 EKG: Sinus rhythm, IVCD, inferior infarct, age indeterminate. 09/15/20 EKG: Sinus rhythm, PRWP, inferior infarct, age indeterminate. Stress Tests:: 10/20/21 [place] myoview: Negative. 10/29/21 Aorta: No AAA. Review of Systems Review of Systems: All systems reviewed & are unremarkable except as noted in HPI and below Constitutional: Constitutional: Reports as per HPI, Denies chills and Denies fever(s) Cardiovascular: Cardiovascular: Reports as per HPI, Denies chest pain and Reports irregular heart rhythm Respiratory: Respiratory: Reports as per HPI, Reports dyspnea and Reports dyspnea on exertion Gastrointestinal: Gastrointestinal: Rep
[2022-07-21 16:20] LABS: Influenza A QL RT-PCR Negative (Negative); Influenza B QL RT-PCR Negative (Negative); RSV RNA, RT-PCR Negative (Negative); SARS-CoV-2 RNA PCR Negative
--- NOTE | 2022-07-21 17:12 | ADMGEN ---
This patient, Sha Crowe, was admitted to IMU Room 212-01. Patient/family oriented to hospital policies and general routines including ID bracelet, bed and alarms, visiting hours, pain management, procedures, bathroom and other care routines, personal items, smoking policy, room service/diet, and visiting hours. Information on how to activate the Rapid Response Team has been discussed. Patient/Family are encouraged to report perceived risks to care and to ask questions if they do not understand what they are told or what they should do.
[2022-07-21 17:53] LABS: Troponin I 0.085 ng/mL (0.000-0.034)
--- NOTE | 2022-07-21 18:34 | PM.IMHP ---
H&P: HPI History of Present Illness Date/Time: 07/21/22 18:34 Chief Complaint: Chest pain Narrative: This is a 76-year-old male patient has a history of hypertension and atrial fibrillation. Patient stated he has been short of breath for the past several weeks. The patient was admitted to [facility] a few days ago and he signed out against medical advice because he continue to the short of breath. The patient stated that he has not been taking his Xarelto because he cannot afford the medication cost him 750 dollars a month. The patient stated that he was not offered the felt her for the Xarelto. The patient stated that he did not mention anything to his doctor. His blood sugar was 209. Troponin 0.075, 0.085, and 0.081. Cardiology has been consulted. BNP 3900. Influenza a B RSV and COVID are all negative. Chest x-ray was read asOpacities in the right mid to lower and to lesser degree left lower lung zones which could represent pneumonia, pulmonary edema, atelectasis or some combination thereof. 2. Mild cardiomegaly. The patient was given Cardizem and started on a Cardizem drip. And he was given IV Lasix in the emergency room. The patient was changed to amiodarone drip per Cardiology. The patient is being admitted to inpatient on the date of service of 07/21/2022 Review of Systems Review of Systems: See HPI All systems reviewed & are unremarkable except as noted in HPI and below Constitutional: Constitutional: Reports as per HPI and Reports no additional constitutional complaints Eyes: Eyes: Reports as per HPI and Reports no additional eye complaints ENT: Reports system reviewed and no additional complaints, except as documented and Reports Normal hearing present Cardiovascular: Cardiovascular: Reports no additional cardiovascular complaints Respiratory: Respiratory: Reports no additional respiratory complaints and Reports no additional respiratory complaints Gastrointestinal: Gastrointestinal: Reports as per HPI and Reports no additional gastrointestinal complaints Musculoskeletal: Musculoskeletal: Reports no additional musculoskeletal complaints Integumentary/Breasts: Skin/Breast: Reports system reviewed and no additional complaints, except as docu and Reports as per HPI Neurologic: Reports system reviewed and no additional complaints, except as documented, Reports as per HPI and Reports Normal hearing present Psychiatric: Psychiatric: Reports no additional psychiatric complaints and Reports as per HPI Endocrine: Endocrine: Reports no additional endocrine complaints Hematologic/Lymphatic: Hematologic/Lymphatic: Reports no additional hematologic/lymphatic complaints Allergic/Immunologic: Allergic/Immunologic: Reports no additional allergic/immunologic complaints [facility] Past Medical History Medical History Acute gout Arthritis Bilateral hydrocele Bilateral leg weakness CAD (coronary artery disease) 2013 cabg Elevated PSA Gout Lumbar pain Obesity LIZET (obstructive sleep apnea) Surgical History Surgical History (Updated 07/21/22 @ 23:08 by Alison Presley NP) H/O hernia repair 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, 2011 Family History Family History (Updated 07/21/22 @ 23:09 by Alison Presley NP) Father Cancer Aneurysm Sibling Aneurysm Social History Social History (Updated 07/21/22 @ 23:10 by Alison Presley NP) Social History: The patient lives with his . 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 Patient stated that he no longer drinks alcohol. He used to drink Chirag Marie and water for bit after he stopped drinking beers but now he is stop drinking alcohol. He has 2 children. Code status full code Smoking packs per day: 1 Smoking cigarettes per day: 20.0 Years smoked: 1 Smoking pack-years: 1.00 Smoking status: Former smoker Tobacco type: cigarettes Smoking end d
[2022-07-21] MEDS: AMIODARONE 360 MG/D5W 200 ML 360 MG/200 ML BAG 33.33 MG IV CONT (20:00)
[2022-07-21] MEDS: AMIODARONE 150 MG/D5W 100 ML 150 MG/100 ML BAG 600 MG IV CONT (20:00)
[2022-07-21] MEDS: ENOXAPARIN 120 MG/0.8 ML SYRINGE 110 MG SUB-Q (20:09)
[2022-07-21] MEDS: METOPROLOL TARTRATE 25 MG TABLET PO (20:10)
[2022-07-21 20:35] LABS: Troponin I 0.081 ng/mL (0.000-0.034)
[2022-07-22] VITALS (20 sets, daily range): BP systolic 117–142; BP diastolic 72–89; PULSE 87–114; RESP 20–32; TEMP 35.6–36.6; O2SAT 94–100
[2022-07-22] MEDS: METOPROLOL TARTRATE 25 MG TABLET PO ×5 (00:28→23:04)
--- NOTE | 2022-07-22 00:46 | PC.NURSE ---
Discussed home medications with patient. Patient a poor historian. States that he obtains medications from [facility] in [place], [place]. Will relay message to day RN.
[2022-07-22] MEDS: AMIODARONE 360 MG/D5W 200 ML 360 MG/200 ML BAG 16.67 MG IV CONT ×3 (01:47→23:43)
[2022-07-22 05:14] LABS: Basophils Absolute Auto 0.1 K/mm3 (0.0-0.1); Basophils Percent Auto 0.8 % (0.2-1.2); Eosinophils Absolute Auto 0.1 K/mm3 (0-0.3); Hematocrit 50.1 % (42.0-52.0); Hemoglobin 16.1 g/dL (14.0-18.0); Immature Granulocyte Absolute 0.08 K/mm3 (0.00-0.031); Immature Granulocyte Percent A 0.9 % (0-0.5); Lymphocytes Absolute Auto 2.23 K/mm3 (0.9-3.2); Lymphocytes Percent Auto 25.1 % (18.3-44.2); Mean Corpuscular HGB Conc 32.1 g/dl (32-36); Mean Corpuscular Hemoglobin 30.3 pg (26-34); Mean Corpuscular Volume 94.2 fl (80-100); Mean Platelet Volume 12.2 fl (7.4-10.4); Monocytes Percent Auto 11.2 % (2.6-8.5); Neutrophils Absolute Auto 5.4 K/mm3 (1.3-6.7); Platelet Count Result 157 k/mm3 (150-375); Red Blood Count 5.32 M/mm3 (4.6-6.20); Red Cell Distribution Width 15.8 % (11.5-14.5); White Blood Count 8.9 K/mm3 (4.5-10.0)
[2022-07-22 05:33] LABS: Anion Gap 8 mmol/L (8-16); Blood Urea Nitrogen 27 mg/dL (9-20); Calcium 8.8 mg/dL (8.4-10.2); Carbon Dioxide 30 mmol/L (22-30); Chloride 101 mmol/L (98-107); Cholesterol 211 mg/dL (0-200); Estimated CRCL calculation 54 ml/min; Estimated Glomerular Filt Rate 49; Glucose 174 mg/dL (65-110); HDL Direct 41 mg/dL; Magnesium 2.2 mg/dL (1.6-2.3); Potassium 4.1 mmol/L (3.4-5.0); Sodium 139 mmol/L (137-145); Triglycerides 169 mg/dL (<150)
[2022-07-22 05:34] LABS: Lactic Acid Reflex 2.7 mmol/L (0.7-2.0)
[2022-07-22 05:44] LABS: LDL Cholesterol Direct 125 mg/dL
--- NOTE | 2022-07-22 06:21 | ECG_ITS ---
Measurements Intervals [place] Rate: 109 P: [place]: 0 QRS: -20 QRSD: 124 T: 99 QT: 373 QTc: 502 Interpretive Statements ATRIAL FIBRILLATION WITH RAPID VENTRICULAR RESPONSE INFERIOR MYOCARDIAL INFARCTION [40+ ms Q WAVE AND/OR ST/T ABNORMALITY IN II/aVF], PROBABLY OLD NONSPECIFIC T-WAVE ABNORMALITY ABNORMAL ECG COMPARED TO ECG 07/21/2022 16:15:26 NO SIGNIFICANT CHANGES Electronically Signed On 07-22-2022 12:06:44 INSOLE TOE SNIPPING MACHINE OPERATOR by Yoshi Grijalva M.D.
--- NOTE | 2022-07-22 07:07 | PC.NURSE ---
I MONITORED THE CHARTING AND MEDICATION DISPENSING FOR THIS PATIENT DONE BY JANINE TELLO, I AGREE WITH EVERYTHING.
[2022-07-22 07:39] LABS: Free T4 Free Thyroxine Reflex 1.02 ng/dL (0.78-2.19)
--- NOTE | 2022-07-22 07:48 | PM.PNCARD ---
Progress Note: A&P Assessment and Plan (1) Atrial fibrillation with rapid ventricular response: Code(s): I48.91 - Unspecified atrial fibrillation Status: Acute Assessment and Plan: Symptomatic. Could be related to alcohol abuse, untreated LIZET (did not tolerate CPAP years ago), age. [id number] 3. He cannot afford Xarelto. Started Amiodarone IV loading for 24 hours, then Amiodarone 200 mg PO every 12 hours. Check EKG. Metoprolol Tartate 25 mg every 6 hours with parameters for rate control. Stop Lovenox. Start Eliquis 5 mg BID. If cost-prohibitive then will go with warfarin. If still in atrial fib by tomorrow, will perform EUFEMIA/DC cardioversion with anesthesia in AM. (2) Elevated troponin: Code(s): R77.8 - Other specified abnormalities of plasma proteins Status: Acute Assessment and Plan: Due to rapid atrial fib and dilated cardiomyopathy. Mildly elevated and peaked at .085. 10/20/21 Echo: EF 45-50%, mod LVE, basal to mid posterior/inferior wall severely hypokinetic to akinetic, mild LVH, grade I diastolic dysfunction (E/e' 9), mild RVE, mod RV hypokinesis, mild LAE, trace MR, Aorta 4.0 cm. 07/21/22 Echo: EF 20-25%, mod LVE, (3) CAD (coronary artery disease), autologous vein bypass graft: Code(s): I25.810 - Atherosclerosis of coronary artery bypass graft(s) without angina pectoris Status: Acute Assessment and Plan: 04/13/13 [facility] CABG x 6 vessels (LANDIS to LAD, left radial to OM, SVG to Ramus, SVG to 1st and 2nd Diag, SVG to PDA). (4) Dyslipidemia: Code(s): E78.5 - Hyperlipidemia, unspecified Status: Acute Assessment and Plan: Very high cholesterol levels. Discussed going on statins but he refuses and states his brother while on Lipitor from an aneurysm. Educated patient about side effects of statins which does not include aneurysms, but he refuses at this time. (5) Dilated cardiomyopathy: Code(s): I42.0 - Dilated cardiomyopathy Status: Acute Assessment and Plan: On Metoprolol and started on Losartan. Probably due to rapid atrial fib, alcohol abuse. Advise to avoid alcohol. Discuss life vest to prevent sudden cardiac arrest but he refused to due to inconvenience and cost. Subjective Date/time seen: 07/22/22 07:48 Interval history: Reports some sob. No chest pains. Exam Const: General: cooperative, healthy appearing, comfortable and obese Nutritional Appearance: obese Orientation/consciousness: oriented to person, oriented to place and oriented to time Resp: Auscultation: clear to auscultation bilaterally, no crackles, no rales, no rhonchi and no wheezes Cardio: Rate: tachycardic Rhythm: abnormal rhythm Heart sounds: no murmurs Peripheral pulses: dorsalis pedis present Neuro: General: oriented to person, oriented to place and oriented to time Extrem: Right lower extremity: no edema Left lower extremity: no edema Objective Data Vital Signs Vital Signs: Vital Signs - 24 hr 07/21/22 13:38 07/21/22 13:58 07/21/22 13:59 Temperature 97.7 F Pulse Rate 133 H 99 Respiratory Rate 34 H Blood Pressure 136/105 H Pulse Oximetry 97 95 Oxygen Delivery Room Air Nasal Cannula Oxygen Flow Rate 2 07/21/22 13:41 07/21/22 13:42 07/21/22 13:45 Temperature Pulse Rate 142 H 131 H 140 H Respiratory Rate 31 H 22 H 32 H Blood Pressure 136/105 H Pulse Oximetry 93 93 96 Oxygen Delivery Oxygen Flow Rate 07/21/22 13:47 07/21/22 13:53 07/21/22 14:03 Temperature Pulse Rate 138 H 128 H Respiratory Rate 21 H 36 H Blood Pressure 159/111 H 130/110 H Pulse Oximetry 96 92 93 Oxygen Delivery Nasal Cannula Oxygen Flow Rate 2 07/21/22 13:54 07/21/22 13:58 07/21/22 14:00 Temperature Pulse Rate 132 H 94 100 Respiratory Rate 28 H 25 H 20 Blood Pressure 112/74 117/93 H Pulse Oximetry 95 93 90 Oxygen Delivery Oxygen Flow Rate 07/21/22 14:01 07/21/22 14:27 07/21/22 14:33 Tem
[2022-07-22 08:11] LABS: Reflex Lactic Acid Yes or No Add Lactic
[2022-07-22] MEDS: LOSARTAN POTASSIUM 25 MG TABLET PO (08:24)
[2022-07-22] MEDS: APIXABAN 5 MG TABLET PO ×2 (08:24→20:36)
[2022-07-22 08:33] LABS: Total Triiodothyronine (T3) 1.01 NG/ML (0.97-1.69)
[2022-07-22 09:00] LABS: Lactic Acid 1.9 mmol/L (0.7-2.0)
--- NOTE | 2022-07-22 11:40 | PM.IMPN ---
Progress Note: A&P Assessment and Plan (1) Atrial fibrillation with rapid ventricular response: Code(s): I48.91 - Unspecified atrial fibrillation Status: Acute Assessment and Plan: Dr. Flores has been consulted. The patient was changed from Cardizem drip to amiodarone. - Currently on Eliquis. Will see if this will get approved by his insurance -an echo has been ordered. (2) CAD (coronary artery disease), autologous vein bypass graft: Code(s): I25.810 - Atherosclerosis of coronary artery bypass graft(s) without angina pectoris Status: Acute Assessment and Plan: The patient stated that he had a 7 vessel CABG and is on metoprolol. (3) Elevated troponin: Code(s): R77.8 - Other specified abnormalities of plasma proteins Status: Acute Assessment and Plan: -he has a level baseline Most likely is due to the AFib with RVR. -the patient no longer has any chest pain. (4) Gout: Code(s): M10.9 - Gout, unspecified Status: Acute Assessment and Plan: -the patient is on allopurinol. The patient stated that he quit drinking alcohol once he found out that he had gout. (5) Dyslipidemia: Code(s): E78.5 - Hyperlipidemia, unspecified Status: Acute Assessment and Plan: -the patient does not appear to be on any medication at this time. Will check his lipid profile and continue with a heart healthy diet. (6) LIZET (obstructive sleep apnea): Code(s): G47.33 - Obstructive sleep apnea (adult) (pediatric) Status: Acute Assessment and Plan: Continue with home settings for CPAP Subjective Date/time seen: 07/22/22 11:40 still in AFib. Exam Const: General: cooperative, healthy appearing, comfortable, no acute distress, well developed, alert, awake, Physically active, average body habitus and overweight Nutritional Appearance: average body habitus and overweight Orientation/consciousness: oriented to person, oriented to place, oriented to time and patient oriented x3 Limitations: no limitations HENMT: Head: normal to inspection, No palpable skull fracture present, normocephalic and atraumatic Ears: hearing grossly normal bilaterally and external ears normal Face/Nose/Sinus: Normal external nose present and Normal nares present Eyes: General: appearance normal, both eyes and all related structures Alignment and Position: alignment normal Periorbital: periorbital findings normal Eyelids: eyelids normal Sclera: sclerae normal Cornea: corneas normal Pupils: Equal, round and reactive pupils present EOM: EOMs intact bilaterally Neck: Neck: normal visual inspection, full ROM, no lymphadenopathy, trachea midline and supple Chest: Chest palpation & inspection: normal inspection of the chest Resp: Effort & Inspection: normal respiratory effort Auscultation: clear to auscultation bilaterally Cardio: Palpation: normal PMI Rate: tachycardic Rhythm: abnormal rhythm Heart sounds: S1 normal heart sound present and S2 normal heart sound present Peripheral pulses: Peripheral pulses 2+ throughout Other: AFib with RVR GI: Inspection: normal to inspection Auscultation: normal bowel sounds Rectal Exam: deferred Back/Spine/Pelvis: Cervical Spine: cervical ROM normal Skin: General skin exam: normal color Lesions: no lesions Rashes: no rashes Trauma: no lacerations or abrasions Wounds: no wounds Hair: normal and male pattern alopecia Nails: normal Neuro: General: oriented to person, oriented to place, oriented to time and patient oriented x3 Cranial nerves: Yes Equal, round and reactive pupils present and Yes Normal hearing present Cognition (Neuro): normal cognition Speech: normal speech Gait exam (Neuro): Normal gait present Motor exam (neuro): 5/5 motor strength present throughout Sensory Exam: normal sensation Extrem: General: normal to inspection Right upper extremity: normal to inspection and shoulder/upper arm Left upper extremity
--- NOTE | 2022-07-22 12:15 | PCRCNOTE ---
PT. STATES HE DOES NOT WEAR A CPAP OR BIPAP AT HOME. HE TRIED IT AND CAN'T TOLERATE IT. STATES HE DOES NOT WANT TO TRY ONE WHILE HERE. Eder NOTIFIED .
[2022-07-22] MEDS: SODIUM CHLORIDE 0.9% IV 1,000 ML 30 ML IV CONT ×2 (23:03→23:45)
[2022-07-23] VITALS (13 sets, daily range): BP systolic 93–129; BP diastolic 55–87; PULSE 66–113; RESP 16–25; TEMP 36.2–36.4; O2SAT 94–98
[2022-07-23] MEDS: METOPROLOL TARTRATE 25 MG TABLET PO ×2 (05:43→11:58)
--- NOTE | 2022-07-23 07:44 | PM.PNCARD ---
Progress Note: A&P Assessment and Plan (1) Atrial fibrillation with rapid ventricular response: Code(s): I48.91 - Unspecified atrial fibrillation Status: Acute Assessment and Plan: Symptomatic. Could be related to alcohol abuse, untreated LIZET (did not tolerate CPAP years ago), age. [id number] 3. He cannot afford Xarelto. Started Amiodarone IV loading for 24 hours, then Amiodarone 200 mg PO every 12 hours. Check EKG. Metoprolol Tartate 25 mg every 6 hours with parameters for rate control. Stop Lovenox. Started Eliquis 5 mg BID. If cost-prohibitive then will go with warfarin. Scheduled for EUFEMIA/DC cardioversion with anesthesia today. If stable afterwards will continue Amiodarone 200 mg BID. And may d/c home from cardiology standpoint and f/u with me in 1 week. (2) Elevated troponin: Code(s): R77.8 - Other specified abnormalities of plasma proteins Status: Acute Assessment and Plan: Due to rapid atrial fib and dilated cardiomyopathy. Mildly elevated and peaked at .085. 10/20/21 Echo: EF 45-50%, mod LVE, basal to mid posterior/inferior wall severely hypokinetic to akinetic, mild LVH, grade I diastolic dysfunction (E/e' 9), mild RVE, mod RV hypokinesis, mild LAE, trace MR, Aorta 4.0 cm. 07/21/22 Echo: EF 20-25%, mod LVE, diastolic dysfunction (E/e' 12), mild RVE, severe RV dysfunction and with TAPSE 1.0 cm, mod LAE, mild GABBY. (3) CAD (coronary artery disease), autologous vein bypass graft: Code(s): I25.810 - Atherosclerosis of coronary artery bypass graft(s) without angina pectoris Status: Acute Assessment and Plan: 04/13/13 [facility] CABG x 6 vessels (LANDIS to LAD, left radial to OM, SVG to Ramus, SVG to 1st and 2nd Diag, SVG to PDA). (4) Dyslipidemia: Code(s): E78.5 - Hyperlipidemia, unspecified Status: Acute Assessment and Plan: Very high cholesterol levels. Discussed going on statins but he refuses and states his brother while on Lipitor from an aneurysm. Educated patient about side effects of statins which does not include aneurysms, but he refuses at this time. (5) Dilated cardiomyopathy: Code(s): I42.0 - Dilated cardiomyopathy Status: Acute Assessment and Plan: On Metoprolol and started on Losartan. Probably due to rapid atrial fib, alcohol abuse. Advise to avoid alcohol. Discuss life vest to prevent sudden cardiac arrest but he refused to due to inconvenience and cost. After DC cardioversion, will change Metoprolol Tartate back Metoprolol Succinate 50 mg daily (home medication). Subjective Date/time seen: 07/23/22 07:44 Interval history: Reports some sob. No chest pains. Exam Const: General: cooperative, healthy appearing, comfortable and obese Nutritional Appearance: obese Orientation/consciousness: oriented to person, oriented to place and oriented to time Resp: Auscultation: clear to auscultation bilaterally, no crackles, no rales, no rhonchi and no wheezes Cardio: Rate: regular rate Rhythm: abnormal rhythm Heart sounds: no murmurs Peripheral pulses: dorsalis pedis present Neuro: General: oriented to person, oriented to place and oriented to time Extrem: Right lower extremity: no edema Left lower extremity: no edema Objective Data Vital Signs Vital Signs: Vital Signs - 24 hr 07/22/22 08:05 07/22/22 08:00 07/22/22 08:00 Temperature 96.0 F L Pulse Rate 106 H 113 H Respiratory Rate 22 H Blood Pressure 126/84 Pulse Oximetry 98 Oxygen Delivery Room Air 07/22/22 10:00 07/22/22 11:56 07/22/22 12:11 Temperature 96.3 F L Pulse Rate 114 H 100 Respiratory Rate 32 H Blood Pressure 142/88 H Pulse Oximetry 100 100 Oxygen Delivery Room Air 07/22/22 12:00 07/22/22 14:00 07/22/22 15:50 Temperature 96.3 F L Pulse Rate 90 88 Respiratory Rate 22 H Blood Pressure 121/88 Pulse Oximetry 98 Oxygen Delivery Room Air 07/22/22 16:00 07/22/22 16:00 07/22/22 18:00 Temperat
--- NOTE | 2022-07-23 08:00 | ECHO_ITS ---
Patient Info Name: Sha Crowe Age: 76 years : 1945 Gender: Male Ht: 72 in Wt: 257 lbs BSA: 2.47 m2 HR: 115 bpm Exam Date: 07/23/2022 12:46 PM Exam Location: [facility] Pulmonary Patient Status: Inpatient Admit Date: 07/21/2022 Staff Ordering Physician: Jeff Self DO Nursery Rn: Donald Aaron RDCS, RT Attending Provider: Kelvin Ribeiro MD Referring Physician: Aramis GONZALEZ; Exam Type: CA echo transesophageal Study Info Indications I48.1 - Persistent atrial fibrillation Complete two-dimensional, color flow and Doppler transesophageal study is performed. Procedure Details Risks/benefits/alternative to EUFEMIA discuss with patient and he was agreeable to procedure. Monitored vitals and electrocardiographically. Sedated as per anesthesia. Had some transient hypoxia and hypotension prior to procedure. It was corrected. EUFEMIA proceeded and advanced into esophagus without incident. Mutliple images obtained. EUFEMIA withdrawn and no blood noted on EUFEMIA probe tip. Patient tolerated procedure well with no complications. Summary 1. EUFEMIA. 2. Left ventricular systolic function is severely reduced with an ejection fraction of 20-25%. 3. The left ventricular diastolic function is indeterminate as it was not assessed. 4. Left ventricular chamber dimension is moderately enlarged. 5. There is mildly increased left ventricular wall thickness. 6. Atrial fibrillation. 7. Right ventricular systolic function is reduced. 8. Left atrial chamber dimension is moderately enlarged. 9. There is mild aortic valve sclerosis. 10. There is mild to moderate mitral valve regurgitation. 11. There is mild tricuspid valve regurgitation. Left Ventricle Left ventricular systolic function is severely reduced with an ejection fraction of 20-25%. The left ventricular diastolic function is indeterminate as it was not assessed. Atrial fibrillation. Left ventricular chamber dimension is moderately enlarged. There is mildly increased left ventricular wall thickness. EUFEMIA. Right Ventricle Right ventricular chamber dimension is normal. Right ventricular systolic function is reduced. Left Atria Left atrial chamber dimension is moderately enlarged. Right Atria Right atrial chamber dimension is normal. Atrial Septum Intact interatrial septum visualized by 2D and color flow imaging. Atrial Appendage There is no mass visualized in the left atrial appendage. Aortic Valve The aortic valve is trileaflet. There is mild aortic valve sclerosis. There is no aortic valve stenosis. There is no aortic valve regurgitation. Pulmonic Valve There is no pulmonic regurgitation. Mitral Valve There is no mitral valve stenosis. There is mild to moderate mitral valve regurgitation. Tricuspid Valve RVSP is not assessed. There is mild tricuspid valve regurgitation. Pericardium/Pleural There is no pericardial effusion. Inferior Vena Cava Inferior vena cava is not well visualized. Aorta The aortic root size at the sinus of Valsalva is normal. Report Signatures
[2022-07-23] MEDS: LOSARTAN POTASSIUM 25 MG TABLET PO (09:11)
[2022-07-23] MEDS: APIXABAN 5 MG TABLET PO (09:11)
[2022-07-23] MEDS: AMIODARONE 360 MG/D5W 200 ML 360 MG/200 ML BAG 16.67 MG IV CONT (11:58)
--- NOTE | 2022-07-23 12:00 | ECG_ITS ---
Measurements Intervals [place] Rate: 91 P: NM: 0 QRS: -30 QRSD: 130 T: 125 QT: 402 QTc: 497 Interpretive Statements ATRIAL FIBRILLATION INFERIOR MYOCARDIAL INFARCTION , PROBABLY OLD [40+ ms Q WAVE AND/OR ST/T ABNORMALITY IN II/aVF] COMPARED TO ECG 07/22/2022 10:09:47 NO SIGNIFICANT CHANGES Electronically Signed On 07-23-2022 15:36:58 [employer]ACHINES TEACHER by Toro Esquivel M.D.
--- NOTE | 2022-07-23 12:17 | WPDANESEPPF ---
Anes - Initial Pre Proc Eval Procedure: Operation Date: 07/23/22 13:30 Proposed Procedures p Trans Esophageal Echo - Jeff Self DO s Electrical Cardioversion - Jeff Self DO Date/Time: 07/23/22 12:17 Surgeon: Kelvin Ribeiro MD Pre Op Diagnosis: afib with rvr,elevated trop,chf Patient Data Age: 76 Gender: M Height: 1.83 m Weight: 116.6 kg Last Vital Signs Temp 97.1 F L 07/23/22 08:00 Pulse 113 H 07/23/22 11:58 Resp 16 07/23/22 08:00 BP 118/87 07/23/22 08:00 Pulse Ox 98 07/23/22 08:00 O2 Del Method Room Air 07/22/22 16:00 O2 Flow Rate 1 07/22/22 04:00 Allergies Allergy/AdvReac Type Severity Reaction Status Date / Time No Known Allergies Allergy Verified 07/21/22 13:45 Home Medications Medication Instructions Recorded Confirmed Type metoprolol succinate 50 mg 50 mg PO DAILY #90 tabs 06/01/22 07/22/22 Rx tablet,extended release 24 hr allopurinol 300 mg tablet 300 mg PO DAILY #90 tabs 07/13/22 07/22/22 Rx colchicine 0.6 mg tablet 0.6 mg PO DAILY #14 tabs 07/13/22 07/22/22 Rx methylprednisolone 4 mg tablets in See Rx Instructions PO PER PKG DIR 07/13/22 07/22/22 Rx a dose pack (Medrol (Demar)) #21 ea Patient hx anesthesia problems: none Family hx anesthesia problems: none Results Review: All pre-operative results and documents have been reviewed as part of the pre-operative evaluation. [facility] Past Medical History Medical History (Updated 07/22/22 @ 07:52 by Jeff Self DO) Acute gout Arthritis Bilateral hydrocele Bilateral leg weakness CAD (coronary artery disease) 2013 cabg Elevated PSA Gout Lumbar pain Obesity LIZET (obstructive sleep apnea) Surgical History Surgical History (Updated 07/21/22 @ 23:08 by Alison Presley NP) H/O hernia repair 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, 2011 Family History Family History (Updated 07/21/22 @ 23:09 by Alison Presley NP) Father Cancer Aneurysm Sibling Aneurysm Social History Social History (Updated 07/21/22 @ 23:10 by Alison Presley NP) Social History: The patient lives with his . 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 Patient stated that he no longer drinks alcohol. He used to drink Chirag Marie and water for bit after he stopped drinking beers but now he is stop drinking alcohol. He has 2 children. Code status full code Smoking packs per day: 1 Smoking cigarettes per day: 20.0 Years smoked: 1 Smoking pack-years: 1.00 Smoking status: Former smoker Tobacco type: cigarettes Smoking end date: 11/27/94 Alcohol intake: current Drinks per week: 30 Alcohol use details: 6-10 beers/day Substance use: never Substance use type: does not use Lack of Transportation: No Lack of Food: Never True Current Housing: I Have Housing Concerned About Future Housing: No Difficulty Paying Gas/Electric Bills: No Difficulty Paying for Meds: No Currently Unemployed: No Education: Trade/Vocational Certificate Difficulty w/ Childcare or Family Care: No Living arrangements: with family Additional living arrangements comments: Occupation/Education: retired Gender identity (if verbalized by the patient): Male Sexual Orientation (if Verbalized by the Patient): Straight or Heterosexual Spiritual care concerns: No Anes - Eval Final PreProcedure Day of Procedure 07/23/22 12:17 Patient weight: obese Heart: irregular rhythm Lungs: clear to auscultation Airway: Mallampati scale class III Neurological: alert and oriented Last oral intake: >/= 8 hours ASA classification: III Emergent: no Anesthetic plan: proceed Anesthesia type and monitoring: general GIVS and standard monitoring Results Review: All pre-operative results and documents have been reviewed as part of the pre-operative evaluation. Informed Consent: The patient's anesthetic plan and its attendant risks and benefits were discussed with the
--- NOTE | 2022-07-23 13:15 | PM.IMPN ---
Progress Note: A&P Assessment and Plan (1) Atrial fibrillation with rapid ventricular response: Code(s): I48.91 - Unspecified atrial fibrillation Status: Acute Assessment and Plan: Dr. Flores has been consulted. The patient was changed from Cardizem drip to amiodarone. - Currently on Eliquis. Will see if this will get approved by his insurance -an echo has been ordered. -cardioversion planned today (2) CAD (coronary artery disease), autologous vein bypass graft: Code(s): I25.810 - Atherosclerosis of coronary artery bypass graft(s) without angina pectoris Status: Acute Assessment and Plan: The patient stated that he had a 7 vessel CABG and is on metoprolol. (3) Elevated troponin: Code(s): R77.8 - Other specified abnormalities of plasma proteins Status: Acute Assessment and Plan: -he has a level baseline Most likely is due to the AFib with RVR. -the patient no longer has any chest pain. (4) Gout: Code(s): M10.9 - Gout, unspecified Status: Acute Assessment and Plan: -the patient is on allopurinol. The patient stated that he quit drinking alcohol once he found out that he had gout. (5) Dyslipidemia: Code(s): E78.5 - Hyperlipidemia, unspecified Status: Acute Assessment and Plan: -the patient does not appear to be on any medication at this time. Will check his lipid profile and continue with a heart healthy diet. (6) LIZET (obstructive sleep apnea): Code(s): G47.33 - Obstructive sleep apnea (adult) (pediatric) Status: Acute Assessment and Plan: Continue with home settings for CPAP Subjective Date/time seen: 07/23/22 13:15 Cardioversion today Exam Const: General: cooperative, healthy appearing, comfortable, no acute distress, well developed, alert, awake, Physically active, average body habitus and overweight Nutritional Appearance: average body habitus and overweight Orientation/consciousness: oriented to person, oriented to place, oriented to time and patient oriented x3 Limitations: no limitations HENMT: Head: normal to inspection, No palpable skull fracture present, normocephalic and atraumatic Ears: hearing grossly normal bilaterally and external ears normal Face/Nose/Sinus: Normal external nose present and Normal nares present Eyes: General: appearance normal, both eyes and all related structures Alignment and Position: alignment normal Periorbital: periorbital findings normal Eyelids: eyelids normal Sclera: sclerae normal Cornea: corneas normal Pupils: Equal, round and reactive pupils present EOM: EOMs intact bilaterally Neck: Neck: normal visual inspection, full ROM, no lymphadenopathy, trachea midline and supple Chest: Chest palpation & inspection: normal inspection of the chest Resp: Effort & Inspection: normal respiratory effort Auscultation: clear to auscultation bilaterally Cardio: Palpation: normal PMI Rate: tachycardic Rhythm: abnormal rhythm Heart sounds: S1 normal heart sound present and S2 normal heart sound present Peripheral pulses: Peripheral pulses 2+ throughout Other: AFib with RVR GI: Inspection: normal to inspection Auscultation: normal bowel sounds Rectal Exam: deferred Back/Spine/Pelvis: Cervical Spine: cervical ROM normal Skin: General skin exam: normal color Lesions: no lesions Rashes: no rashes Trauma: no lacerations or abrasions Wounds: no wounds Hair: normal and male pattern alopecia Nails: normal Neuro: General: oriented to person, oriented to place, oriented to time and patient oriented x3 Cranial nerves: Yes Equal, round and reactive pupils present and Yes Normal hearing present Cognition (Neuro): normal cognition Speech: normal speech Gait exam (Neuro): Normal gait present Motor exam (neuro): 5/5 motor strength present throughout Sensory Exam: normal sensation Extrem: General: normal to inspection Right upper extremity: normal to inspection and should
--- NOTE | 2022-07-23 13:29 | WPDCARDVER ---
Cardioversion Cardioversion Date of procedure: 07/23/22 Procedure: DC cardioversion Pre-op diagnosis: Symptomatic rapid atrial fibrillation Post-op diagnosis: Same Indications: Symptomatic rapid atrial fibrillation Description of procedure: Risks/benefits/alternative to cardioversion discuss with patient and he was agreeable to procedure. Monitored electrocardiographically, BP, HR and pulse ox. Defibrillator pads placed on anterior and posterior chest. Sedated as per anesthesiology. After EUFEMIA performed which showed no left atrial or left atrial appendage thrombus, then DC cardioversion with synchronized 200 J biphasic energy x1 that was successful to restore sinus rhythm. No complications. Patient tolerated procedure well. Sedation: As per anesthesiology Conclusion: 1. Successful DC cardioversion from atrial fibrillation to Sinus rhythm. [facility] Billing for Cardioversion: Cardioversion
--- NOTE | 2022-07-23 13:45 | ECG_ITS ---
Measurements Intervals [place] Rate: 56 P: 24 SD: 209 QRS: -29 QRSD: 126 T: 148 QT: 479 QTc: 463 Interpretive Statements SINUS BRADYCARDIA WITH OCCASIONAL SUPRAVENTRICULAR PREMATURE COMPLEXES INFERIOR MYOCARDIAL INFARCTION , PROBABLY OLD [40+ ms Q WAVE AND/OR ST/T ABNORMALITY IN II/aVF] COMPARED TO ECG 07/23/2022 12:26:56 HEART RATE IS REDUCED NO OTHER DIFFERENCE Electronically Signed On 07-23-2022 15:40:17 KILN BURNER HELPER by Toro Esquivel M.D.
--- NOTE | 2022-07-23 16:13 | PM.DS ---
DS: Admitting Diagnosis Discharge Date 07/23/22 Admitting Diagnosis afib DS: Discharge Diagnosis Discharge Diagnosis (1) Atrial fibrillation with rapid ventricular response: Code(s): I48.91 - Unspecified atrial fibrillation Status: Acute Assessment and Plan: Dr. Flores has been consulted. The patient was changed from Cardizem drip to amiodarone. - Currently on Eliquis. Will see if this will get approved by his insurance -an echo has been ordered. -cardioversion planned today (2) CAD (coronary artery disease), autologous vein bypass graft: Code(s): I25.810 - Atherosclerosis of coronary artery bypass graft(s) without angina pectoris Status: Acute Assessment and Plan: The patient stated that he had a 7 vessel CABG and is on metoprolol. (3) Elevated troponin: Code(s): R77.8 - Other specified abnormalities of plasma proteins Status: Acute Assessment and Plan: -he has a level baseline Most likely is due to the AFib with RVR. -the patient no longer has any chest pain. (4) Gout: Code(s): M10.9 - Gout, unspecified Status: Acute Assessment and Plan: -the patient is on allopurinol. The patient stated that he quit drinking alcohol once he found out that he had gout. (5) Dyslipidemia: Code(s): E78.5 - Hyperlipidemia, unspecified Status: Acute Assessment and Plan: -the patient does not appear to be on any medication at this time. Will check his lipid profile and continue with a heart healthy diet. (6) LIZET (obstructive sleep apnea): Code(s): G47.33 - Obstructive sleep apnea (adult) (pediatric) Status: Acute Assessment and Plan: Continue with home settings for CPAP DS: Summary Hospital Course Hospital Course: admitted for afib, sp cardioversion, now in nsr, continue bb and amiodarone and AC - fu with cardiology Time Spent with Patient Time attestation: Total time spent providing and/or coordinating discharge services: Exam Const: General: cooperative, healthy appearing, comfortable, no acute distress, well developed, alert, awake, Physically active, average body habitus and overweight Nutritional Appearance: average body habitus and overweight Orientation/consciousness: oriented to person, oriented to place, oriented to time and patient oriented x3 Limitations: no limitations HENMT: Head: normal to inspection, No palpable skull fracture present, normocephalic and atraumatic Ears: hearing grossly normal bilaterally and external ears normal Face/Nose/Sinus: Normal external nose present and Normal nares present Eyes: General: appearance normal, both eyes and all related structures Alignment and Position: alignment normal Periorbital: periorbital findings normal Eyelids: eyelids normal Sclera: sclerae normal Cornea: corneas normal Pupils: Equal, round and reactive pupils present EOM: EOMs intact bilaterally Neck: Neck: normal visual inspection, full ROM, no lymphadenopathy, trachea midline and supple Chest: Chest palpation & inspection: normal inspection of the chest Resp: Effort & Inspection: normal respiratory effort Auscultation: clear to auscultation bilaterally Cardio: Palpation: normal PMI Rate: tachycardic Rhythm: abnormal rhythm Heart sounds: S1 normal heart sound present and S2 normal heart sound present Peripheral pulses: Peripheral pulses 2+ throughout Other: AFib with RVR GI: Inspection: normal to inspection Auscultation: normal bowel sounds Rectal Exam: deferred Back/Spine/Pelvis: Cervical Spine: cervical ROM normal Skin: General skin exam: normal color Lesions: no lesions Rashes: no rashes Trauma: no lacerations or abrasions Wounds: no wounds Hair: normal and male pattern alopecia Nails: normal Neuro: General: oriented to person, oriented to place, oriented to time and patient oriented x3 Cranial nerves: Yes Equal, round and reactive pupils present and Yes Normal hearing present Cog
== END 2022-07-23 16:41 | disposition home or self-care (01) | DRG 309 ==
LOC: ANHED 15:23 → ANHIMU 15:41
PROVIDERS: Emergency Medicine; Internal Medicine Cardiovascular Disease; Nurse Practitioner; Admitting Provider Internal Medicine; Emergency Provider Family Medicine; PCP Family Medicine; Visit Provider Chiropractor
PROC: B24BZZ4 Ultrasonography of Heart with Aorta, Transesophageal (ICD-10-PCS; CPT 93312; principal; 2022-07-23 13:30)
PROC: 5A2204Z Restoration of Cardiac Rhythm, Single (ICD-10-PCS; 2022-07-23 13:30)
DX: I48.91 Unspecified atrial fibrillation (principal); I25.810 Atherosclerosis of coronary artery bypass graft(s) without angina pectoris; R77.8 Other specified abnormalities of plasma proteins; M10.9 Gout, unspecified; I42.0 Dilated cardiomyopathy; I42.6 Alcoholic cardiomyopathy; F10.10 Alcohol abuse, uncomplicated; E78.5 Hyperlipidemia, unspecified; G47.33 Obstructive sleep apnea (adult) (pediatric); M19.90 Unspecified osteoarthritis, unspecified site; I10 Essential (primary) hypertension; E66.9 Obesity, unspecified; Z68.34 Body mass index [BMI] 34.0-34.9, adult; Z87.891 Personal history of nicotine dependence; Z20.822 Contact with and (suspected) exposure to COVID-19
CPT/HCPCS: 36415; 71046; 80048; 80053; 80061; 83605; 83690; 83735; 83880; 84439; 84443; 84480; 84484; 85025; 85610; 85730; 87637; 92960; 93005; 93306; 93312; 93320; 93325; 96374; 96375; 99285; A9270; J0282; J1650; J1940; J2370; J2704; J7030

== ENCOUNTER 2022-09-27 08:15 | Outpatient (RCR) | payer MEDICARE, SELFPAY ==
--- NOTE | 2022-08-10 16:15 | PTOPEVAL1 ---
Assessment and note entered by Ciara Fuentes, PT Evaluation Information Assessment Status Evaluation Diagnosis low back pain Onset Jun 2022 Subjective Information No traumatic incident Started slowly Pt biggest goal is to strengthen legs, to walk and stand up longer. Would like to be able to get on and off motorcycle easier. Reported Pain Level Pain Score 0: Self Report Assessment PT Clinical Summary Pt presents with diagnosis of low back pain. Pt has also recently hospitalized for a-fib and cardioversion. Pt reports continues to feel weak compared to prior to heart issues. Notes he also had a fall yesterday, and feels his back and legs are weak. Pt evaluation demos possible leg length discrepancy, decreased base of support in standing , pt is at moderate risk for falls, and demos hip/ LE weakness. Pt was educated on energy conservation techniques as improves his endurance and strength with therapy. Pt will benefit from therapy for education, addressing his weakness, balance, and returning to prior level of fucntion. Plan of Care Interventions Neuro Re-education,Patient/Caregiver Educati, Therapeutic Activities,Therapeutic Exercise PT Services Indicated Yes Treatment Frequency and 1x 8 weeks Duration These treatments will address the objective and functional deficits as defined above. The patient will be advanced safely and appropriately in order for the patient to progress towards his/her prior level of function. Additional exercises will be introduced and as well as a comprehensive home exercise program upon discharge, if needed, ?to ensure carryover of functional gains achieved in the clinic. This treatment plan has been reviewed and agreement upon by the patient.
--- NOTE | 2022-09-10 13:11 | PCPTNOTE ---
Patient called & cancelled scheduled appointment this date due to forgetting he had an appointment
--- NOTE | 2022-09-13 16:32 | PTOPPROG ---
Assessment and note entered by Ciara Fuentes, PT Evaluation Information Assessment Status Progress Report Diagnosis low back pain Onset Jun 2022 Subjective Information Pt reports had a sore back a couple days ago. Reports did not do ice, heat, or medication, just rest. [place] some better the next day. Reports only 10% improvement overall since starting therapy. States he has not been doing his exercises as instructed and hand out provided. Pt states he still feels pretty weak . States he has noticed increased ease with getting on and off his motorocycle Assessment PT Clinical Summary Pt reports increased back pain recently with working outside. Reports he did not use ice or heat or medication for this. Also reports he has not been performing his provided home exercises. Pt states only feeling 10% improved overall at this time. Testing does show significant improvement in balance testing showing is now in low risk category for falls. Pt shows mildly improved lumbar ROM, and mildly improved strength, and improved 2 min walk test all of can be attributed to increased function w/ home activities. Therapist reenforced importance of exercises in helping pt reach his goals for back pain and strength. Pt will benefit from physical therapy in order to continue education, strengthening, and functional mobility training to reach patient's goals of high level activity such as caring for land and riding motorcycles. Plan of Care Interventions Neuro Re-education,Patient/Caregiver Educati, Therapeutic Activities,Therapeutic Exercise PT Services Indicated Yes Treatment Frequency and continue 1x 4 weeks Duration These treatments will address the objective and functional deficits as defined above. The patient will be advanced safely and appropriately in order for the patient to progress towards his/her prior level of function. Additional exercises will be introduced and as well as a comprehensive home exercise program upon discharge, if needed, ?to ensure carryover of functional gains achieved in the clinic. This treatment plan has been reviewed and agreement upon by the patient.
--- NOTE | 2022-10-05 07:58 | PCPTNOTE ---
Patient did not show up for scheduled appointment 10/03/22. Attempted to call patient and was unable to reach him or leave voice mail to reschedule.
--- NOTE | 2022-10-11 08:46 | PCPTNOTE ---
Patient called & cancelled scheduled appointment this date due to family emergency. Pt unable to reschedule at this time. Will keep case open for 2 weeks and discharge if patient has not returned.
--- NOTE | 2022-10-21 15:45 | PTOPDC ---
Assessment and note entered by Ciara Fuentes, PT Assessment Status Discharge - Pt Not Present Diagnosis low back pain Onset Jun 2022 Assessment PT Clinical Summary Pt attended 7 sessions in a period of 8 weeks w/ 2 cancellations and one no call no show appointment . Based on previous session, pt stated he didn't do his home exercise program as directed. Unfortunately as of the last we spoke with him on the phone, he had a family emergency and was unable to reschedule at that time. He has not contacted us for further therapy. Thus we are discharging patient for nonattendance.
== END 2022-10-26 10:09 | disposition home or self-care (01) ==
LOC: ANHHIPT 08:15
PROVIDERS: PCP Family Medicine; Visit Provider Family Medicine
DX: R29.898 Other symptoms and signs involving the musculoskeletal system (principal); M54.50 Low back pain, unspecified
CPT/HCPCS: 97110; 97112; 97162

== ENCOUNTER 2023-03-25 09:00 | Outpatient (RCR) | payer MEDICARE, SELFPAY ==
--- NOTE | 2023-02-25 09:27 | PTOPEVAL1 ---
Assessment and note entered by Ciara Fuentes, PT Evaluation Information Assessment Status Evaluation Diagnosis Unspec. osteoarthritis, Oth S&S involving musculoskeletal system, spondylosis without myelopathy or radiculopathy, lumbar region Therapy condition Oth. Abnormalities of gait and mobility weakness Subjective Information Pt reports back has been bothering him about 6-8 months. Has been progressively worsening. States has been diagnosed with stenosis. Has weakness in legs and back with walking. Can't walk to far anymore seems like . Reports no pain with walking, just weakness. Getting down or bending down to get something get's wore out real fast . Takes a long sitting break for strength to return. Is able walk for about 10 minutes before has to sit and rest for 15 minutes If doing work in his yard, can work about 15 minutes and then rest about 15 minutes. Reports also has slap foot when walking, states feels like valentin totters from one leg to another . Reported Pain Level Pain Score 0: Self Report Additional Pain Score Comments Pt reports doesn't have pain in back and legs just weakness. Assessment PT Clinical Summary Pt presents with complaints of back and legs weakness more than pain he reports today. Demo's significant core deficits with isolated testing, endurance deficits during 2 min walk testing, flexiblity and ROM deficits. Pt educated thoroughly on modifications of lifestyle, importance of home exercises to progress, and purpose of therapy to improve lifestyle. Pt will thus benefit from therapy to continue this education, address deficits, and improve overall funciton to lead a more active and independent lifestyle. Plan of Care Interventions Electrical Stimulation,Gait Training,Hot Pack/Cold Pack,Manual Therapy,Mechanical Traction,Neuro Re- education,Patient/Caregiver Educati,Therapeutic Activities,Therapeutic Exercise,Ultrasound PT Services Indicated Yes Treatment Frequency and 1-2x weekly x 8 weeks Duration These treatments will address the objective and functional deficits as defined above. The patient will be advanced safely an
--- NOTE | 2023-02-25 09:28 | OPREHPOC ---
Outpatient Therapy Plan of Care This is a Multidisciplinary Plan of Care that may contain components documented by all disciplines (PT, OT, and ST.) PT Problem 1 PT Problem #1 Knowledge Deficit PT Goal 1 Goal Pt will be independent in HEP Pt will verbalize understanding of diagnosis and prognosis Target Visit 8 PT Problem 2 PT Problem #2 Impaired Strength PT Goal 1 Goal Pt will demo strength of 4/5 in all tested planes Target Visit 8 PT Goal 2 Goal Pt will demo strength of 4+/5 in all tested planes Target Visit 16 PT Problem 3 PT Problem #3 Impaired Flexibility PT Goal 1 Goal Pt will demo hamstring flexibility of 45 degrees or greater from 90/90 position Target Visit 8 PT Goal 2 Goal Pt will demo hamstring flexibility of 60 degrees or greater from 90/90 position Target Visit 16 PT Problem 4 PT Problem #4 Impaired Gait PT Goal 1 Goal Pt will demo 2 min walk test without L<>R torso shift showing gluteus medius strength improvement Target Visit 8 PT Problem 5 PT Problem #5 Impaired Range of Motion PT Goal 1 Goal Pt will demo Lumbar ROM of 60% or greater overall Target Visit 8 PT Goal 2 Goal Pt will demo lumbar ROM of 75% or greater overall
--- NOTE | 2023-03-16 08:54 | PCPTNOTE ---
Patient arrived to clinic to cancelled scheduled appointment this date stated I'm just too busy today.
--- NOTE | 2023-03-25 16:54 | PTOPPROG ---
Assessment and note entered by Ciara Fuentes, PT Assessment Status Progress Diagnosis Unspec. osteoarthritis, Oth S&S involving musculoskeletal system Therapy conditions Oth abnormalities of gait and mobility Subjective Information Pt reports is still taking blood thinners but hasn 't had his pills in a few days. Still just no energy. Pt reports diet is usually eats a Ham/cheese sandwich or [employer] Croissant for breakfast. Had some cereal about 3 am cause was hungry. Also has hams sandwiches. Misses lunch sometimes. 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 Reports doesn't like to go out for lunch because is expensive. Evening meal, had chicken fried steak and potatoes. No vegetables, neveer been a vegetable isrrael . Reports lately hasn't been taking any supplements. Has been so busy. Work days are usually 3-4 hours. doesn't use his C-PAP. Hasn't checked into nasal pillow Pt reports feels whole body is weak . Has recently started Testosterone shot 10 days ago from [facility] ad is going to start this biweekly. Assessment PT Clinical Summary Due to scheduling conflicts, pt has only attended 3 sessions in a months time. Today pt was thoroughly educated on lifestyle changes to assist in energy levels as well as provided initial HEP to lumbar spine ROM. Minimal changes to be expected due to lack of attendance. Will attempt continued improvement pending improved consistency and compliance with therapy program. Plan of Care Interventions Electrical Stimulation,Gait Training,Hot Pack/Cold Pack,Manual Therapy,Mechanical Traction,Neuro Re- education,Patient/Caregiver Educati,Therapeutic Activities,Therapeutic Exercise,Ultrasound PT Services Indicated Yes Treatment Frequency and 1-2x weekly x 4 weeks Duration These treatments will address the objective and functional deficits as defined above. The patient will be advanced safely and appropriately in order for the patient to progress towards his/her prior level of function. Additional exercises will be introduced and as well as a comprehensive home exercise program upon discharge, if needed, ?to ensure carryover of functional gains achieved in the clinic. This treatment plan has been reviewed and agreement upon by the patient.
--- NOTE | 2023-04-01 13:21 | PCPTNOTE ---
The patient treatment was not able to be completed on 03/30/23 due to staffing shortage. Will plan to continue treatment per plan of care.
--- NOTE | 2023-04-06 15:47 | PCPTNOTE ---
Patient called & cancelled scheduled appointment this date, no reason given. Pt has cancelled three times, each within 24hours of the scheduled appointment. Per department policy pt will be informed that his plan will be discharged due to nonattendance.
--- NOTE | 2023-04-07 08:02 | PTOPDC ---
Assessment and note entered by Ciara Fuentes, PT Assessment Status Discharge - Pt Not Present Diagnosis Unspec. osteoarthritis, Oth S&S involving musculoskeletal system Subjective Information Pt reports is still taking blood thinners but hasn 't had his pills in a few days. Still just no energy. Pt reports diet is usually eats a Ham/cheese sandwich or [employer] Croissant for breakfast. Had some cereal about 3 am cause was hungry. Also has hams sandwiches. Misses lunch sometimes. 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 Reports doesn't like to go out for lunch because is expensive. Evening meal, had chicken fried steak and potatoes. No vegetables, maria teresaeer been a vegetable isrrael . Reports lately hasn't been taking any supplements. Has been so busy. Work days are usually 3-4 hours. doesnt use his C-PAP. Hasn't checked into nasal pillow Pt reports feels whole body is weak . Has recently started Testosterone shot 10 days ago from ad is going to start this biweekly. Assessment PT Clinical Summary Pt has attended 3 visits including evaluation and cancelled 3 visits within the 24 hour timeframe. Due to department policy, pt has been informed and will be discharged due to nonattendance.
== END 2023-04-07 08:41 | disposition home or self-care (01) ==
LOC: ANHHIPT 09:00
PROVIDERS: PCP Family Medicine; Visit Provider Family Medicine
DX: M19.90 Unspecified osteoarthritis, unspecified site (principal)
CPT/HCPCS: 97110; 97112; 97162; 97750

== ENCOUNTER 2023-04-20 10:24 | Outpatient (CLI) | payer MEDICARE, SELFPAY ==
--- NOTE | ~2023-04-20 | MR_ITS ---
EXAMINATION: MR lumbar spine wo con DATE: 04/20/2023 11:17 INDICATION: Lumbar spondylosis without myelopathy or radiculopathy TECHNIQUE: Magnetic resonance imaging (MRI) of the lumbar spine was performed without intravenous con trast. Sequences included sagittal T2-weighted FSE, sagittal T2-weighted FS FSE, sagittal T1-weighted FSE, and axial T2-weighted FSE. COMPARISON: Lumbar spine radiographs dated 03/23/2022 FINDINGS: Straightening of the normal lumbar lordosis. 5 mm retrolisthesis L5 on S1. Vertebral body heights are normal. Schmorl's node along the inferior endplate of L2. There are mild fibrofatty degenerative end plate changes along portions of the inferior endplates from L2 through L5. Bone marrow signal is othe rwise normal. Disc desiccation and mild disc height loss at L2-L3., L4-5 and L5-S1. Disc desiccation and minimal disc height loss at L3-L4. The conus medullaris terminates at L1-L2. There is normal sign al in the caudal spinal cord. Paravertebral soft tissues are unremarkable. The following disc levels are specifically discussed: T12-L1: The disc does not extend beyond the endplate margin. There is mild bilateral facet joint oste oarthritis. There is minimal right neural foraminal stenosis. There is no central canal stenosis. L1-L2: Small bilateral foraminal zone disc protrusions. There is mild right facet joint osteoarthriti s. There is minimal bilateral neural foraminal stenosis. There is no central canal stenosis. L2-L3: Disc is bulging. There is mild bilateral facet joint osteoarthritis. There is mild bilateral n eural foraminal stenosis. There is mild central canal stenosis. L3-L4: Small left foraminal zone disc protrusion. There is mild to moderate bilateral facet joint ost eoarthritis. There is mild bilateral neural foraminal stenosis. There is no central canal stenosis. L4-L5: Disc is mildly bulging. There is moderate left and mild to moderate right facet joint osteoart hritis. There is moderate left and mild to moderate right neural foraminal stenosis. There is mild ce ntral canal stenosis. L5-S1: Disc is bulging with annular fissure. There is mild to moderate bilateral facet joint osteoart hritis. There is moderate right and mild to moderate left neural foraminal stenosis. There is no cent ral canal stenosis. IMPRESSION: 1. Mild lumbar spondylosis. Reviewed, dictated and finalized at location A. [facility] IMPRESSION: 1. Mild lumbar spondylosis.
== END 2023-04-20 10:25 | disposition home or self-care (01) ==
PROVIDERS: PCP Family Medicine; Visit Provider Family Medicine
DX: M47.816 Spondylosis without myelopathy or radiculopathy, lumbar region (principal)
CPT/HCPCS: 72148

== ENCOUNTER 2024-05-28 09:00 | Outpatient (RCR) | payer MEDICARE, SELFPAY ==
--- NOTE | 2024-05-01 10:12 | PTOPEVAL1 ---
Assessment and note entered by Ciara Fuentes, PT Evaluation Information Assessment Status Evaluation Diagnosis Lumbar stenosis with neurogenic claudication; M48. 062 ICD-10 Condition Codes (PT) Pain in low back M54.50,M54.16,Pain in right hip M25.551,Pain in left hip M25.552,Difficulty Walking R26.2,R26.9,Weakness R53.1 Onset 1.5 years ago Subjective Information Pt reports when he walks hips get really sore. Calves also get sore. States had 2-3 steroid shots that didn't work. one helped on the right hip but didn't help on the left leg States can walk about 60 ft and after that gets very painful. Patient will sit to decreased pain after a walk, takes about 10 minutes to reduce. Reported Pain Level Pain Score 0: Self Report Assessment PT Clinical Summary Pt presents with complaints of back pain, leg weakness, hip pain, and difficulty in walking. Pt diagnosis of lumbar stenosis with neural claudication. Pt demo's very poor lumbopelvic strength, significant abnormalities in ambulation which worsen with longer walking. Demo's foot drop in walking without anterior tib weakness in isolated testing in sitting. Pt will greatly benefit from physical therapy to address alignment and strength to decompress spinal stenosis and improve symptoms with functional activity. Plan of Care Interventions Electrical Stimulation,Gait Training,Hot Pack/Cold Pack,Manual Therapy,Mechanical Traction,Neuro Re- education,Patient/Caregiver Educati,Therapeutic Activities,Therapeutic Exercise,Self-Care/Home Management,Other Other Interventions Taping, bracing PT Services Indicated Yes Treatment Frequency and 1-2x weekly x 10 visits Duration These treatments will address the objective and functional deficits as defined above. The patient will be advanced safely and appropriately in order for the patient to progress towards his/her prior level of function. Additional exercises will be introduced and as well as a comprehensive home exercise program upon discharge, if needed, ?to ensure carryover of functional gains achieved in the clinic. This treatment plan has been reviewed and agreement upon by the patient.
--- NOTE | 2024-05-01 10:12 | OPREHPOC ---
Outpatient Therapy Plan of Care This is a Multidisciplinary Plan of Care that may contain components documented by all disciplines (PT, OT, and ST.) PT Problem 1 PT Problem #1 Knowledge Deficit PT Goal 1 Goal / Goal Update Pt will be independent in HEP Pt will verbalize understanding of diagnosis and prognosis Target Visit 5 PT Problem 2 PT Problem #2 Impaired Flexibility PT Goal 1 Goal / Goal Update Pt will demonstrate hamstring flexibility from 90/ 90 position of 60 degrees or more Target Visit 5 PT Goal 2 Goal / Goal Update Pt will demonstrate improved hip flexor flexibility to offload spinal stenosis while walking Target Visit 10 PT Problem 3 PT Problem #3 Pain PT Goal 1 Goal / Goal Update Pt will report greatest pain in lumbar spine of 3/ 10 or less Target Visit 10 PT Goal 2 Goal / Goal Update Pt will report ability to walk and stand as long as he wishes with less than 2/10 hip and lumbar pain Target Visit 20 PT Problem 4 PT Problem #4 Impaired Strength PT Goal 1 Goal / Goal Update Pt will demonstrate TRAM strength of 3+/5 for improved lumbopelvic stability and offloading spine Target Visit 10 PT Goal 2 Goal / Goal Update Pt will demo 4/5 strength in bilat gluteal medius and pilar for improved lumbopelvic support Target Visit 10
--- NOTE | 2024-06-06 10:42 | PCPTNOTE ---
Patient called & cancelled scheduled appointment 06/04/2024 due to weather conditions.
--- NOTE | 2024-06-14 09:14 | PTOPDC ---
Assessment and note entered by Ciara Fuentes, PT Evaluation Information Assessment Status Discharge - Pt Not Present Diagnosis Lumbar stenosis with neurogenic claudication; M48. 062 ICD-10 Condition Codes (PT) Pain in low back M54.50,Radiculopathy, lumbar region M54.16,Pain in right hip M25.551,Pain in left hip M25.552,Difficulty Walking R26.2, Abnormalities of gait and mobility R26.9,Weakness R53.1 Onset 1.5 years ago Subjective Information Pt reports when he walks hips get really sore. Calves also get sore. States had 2-3 steroid shots that didn't work. one helped on the right hip but didn't help on the left leg States can walk about 60 ft and after that gets very painful. Patient will sit to decreased pain after a walk, takes about 10 minutes to reduce. Assessment PT Clinical Summary Pt attended a total of 7 appointments. Pt no- showed his eight appt, due to weather was unable to attend his ninth, then called and cancelled the remainder of his appointments. He did not give a reason. Thus patient is being discharged due to nonattendance. Plan of Care PT Services Indicated No
== END 2024-06-19 11:16 | disposition home or self-care (01) ==
LOC: ANHHIPT 09:00
PROVIDERS: PCP Physician Assistant Medical; Visit Provider Nurse Practitioner Family
DX: M48.062 Spinal stenosis, lumbar region with neurogenic claudication (principal)
CPT/HCPCS: 97012; 97110; 97116; 97140; 97162